=== PATIENT | male | born 1945 | race Caucasian/White ===

== ENCOUNTER → 2017-11-25 | Day surgery (SDC) | payer OTHER, SELFPAY | END | disposition home or self-care (01) | PROVIDERS: PCP Internal Medicine; Visit Provider Ophthalmology | DX: H25.12 Age-related nuclear cataract, left eye (principal); E11.9 Type 2 diabetes mellitus without complications; I10 Essential (primary) hypertension; Z79.4 Long term (current) use of insulin | CPT/HCPCS: J2250; J3010; V2787 ==

== ENCOUNTER → 2018-01-23 07:43 | Outpatient (CLI) | payer OTHER, SELFPAY ==
[2018-01-23 09:03] LABS: Hemoglobin A1C% w Est Avg Glu 7.4 % (4.0-6.0)
[2018-01-23 09:05] LABS: Add Manual Diff / Slide Review NO; Basophils Percent Auto 0.7 % (0-2); Eosinophils Percent Auto 5.1 % (2-4); Hematocrit 39.9 % (41-53); Hemoglobin 13.4 g/dL (13.5-17.5); Lymphocytes Percent Auto 27.6 % (25-40); Mean Corpuscular HGB Conc 33.7 % (30-36); Mean Corpuscular Hemoglobin 29.7 PG (26-34); Mean Corpuscular Volume 88.1 fL (80-100); Monocytes Percent Auto 9.9 % (3-14); Neutrophils Absolute Auto 3600 /uL (3000-5900); Neutrophils Percent Auto 56.7 % (50-75); Platelet Count 170 X10^3/uL (150-400); Red Blood Cell Count 4.53 X10^6/uL (4.5-5.9); Red Cell Distribution Width 13.7 % (11.6-14.8); White Blood Cell Count 6.3 X10^3/uL (4.5-11.0)
[2018-01-23 09:31] LABS: Alanine Aminotransferase 25 IU/L (21-72); Albumin 3.9 g/dL (3.5-5.0); Albumin Globulin Ratio 1.4 (1.0-2.8); Alkaline Phosphatase 69 U/L (38-126); Aspartate Aminotransferase 13 IU/L (17-59); BUN Creatinine Ratio 24.3 (6-22); Bilirubin Total 0.6 mg/dL (0.2-1.3); Blood Urea Nitrogen 34 mg/dL (9-20); Carbon Dioxide 29 mmol/L (22-32); Chloride 103 mmol/L (98-107); Cholesterol 117 mg/dL (140-199); Globulin 2.8 g/dL (1.7-4.1); Glucose 87 mg/dL (80-110); HDL Cholesterol 38 mg/dL (40-60); HEMOLYSIS < 15 (0-50); LDL Cholesterol Calculated 67 mg/dL (<100); Potassium 4.8 mmol/L (3.4-5.1); Sodium 142 mmol/L (137-145); Total Protein 6.7 g/dL (6.3-8.2); Triglycerides 61 mg/dL (35-150)
== END ==
PROVIDERS: PCP Internal Medicine; Visit Provider Internal Medicine
DX: E11.9 Type 2 diabetes mellitus without complications (principal)
CPT/HCPCS: 36415; 80053; 80061; 83036; 85025

== ENCOUNTER → 2018-05-27 08:42 | Outpatient (CLI) | payer OTHER, SELFPAY ==
[2018-05-27 09:14] LABS: Hemoglobin A1C% w Est Avg Glu 7.4 % (4.0-6.0)
[2018-05-27 10:04] LABS: Creatinine Urine Random 77.4 mg/dL
[2018-05-27 10:09] LABS: Microalbumi Creatinin Ratio Ur 165.3 ug/mg CR (<30); Microalbumin Urine Random 12.8 mg/dL (0-1.6)
== END ==
PROVIDERS: PCP Internal Medicine; Visit Provider Internal Medicine
DX: E11.9 Type 2 diabetes mellitus without complications (principal)
CPT/HCPCS: 36415; 82043; 82570; 83036

== ENCOUNTER → 2019-06-23 13:41 | Outpatient (ROUT) | payer OTHER, SELFPAY ==
[2019-06-23 14:04] LABS: Add Manual Diff / Slide Review NO; Basophils Absolute Auto 100 /uL (0-100); Basophils Percent Auto 0.9 % (0-2); Eosinophils Absolute Auto 400 /uL (0-450); Eosinophils Percent Auto 5.7 % (2-4); Hematocrit 40.8 % (41-53); Lymphocytes Absolute Auto 1800 /uL (1100-4500); Lymphocytes Percent Auto 23.6 % (25-40); Mean Corpuscular HGB Conc 34.3 % (30-36); Mean Corpuscular Hemoglobin 30.1 PG (26-34); Mean Corpuscular Volume 87.8 fL (80-100); Monocytes Absolute Auto 600 /uL (0-900); Monocytes Percent Auto 8.1 % (3-14); Neutrophils Absolute Auto 4600 /uL (1500-7000); Neutrophils Percent Auto 61.7 % (50-75); Platelet Count 192 X10^3/uL (150-400); Red Blood Cell Count 4.65 X10^6/uL (4.5-5.9); Red Cell Distribution Width 13.8 % (11.6-14.8); White Blood Cell Count 7.5 X10^3/uL (4.5-11.0)
[2019-06-23 14:20] LABS: Aspartate Aminotransferase 20 IU/L (17-59); BUN Creatinine Ratio 31.5 (6-22); Blood Urea Nitrogen 41 mg/dL (9-20); Calcium 9.4 mg/dL (8.4-10.2); Carbon Dioxide 27 mmol/L (22-32); Chloride 103 mmol/L (98-107); Cholesterol 142 mg/dL (140-199); Estimated Glomerular Filt Rate 54.3 mL/min (>60); Glucose 219 mg/dL (80-110); HDL Cholesterol 31 mg/dL (40-60); HEMOLYSIS 21 (0-50); LDL Cholesterol Calculated 72 mg/dL (<100); Potassium 4.5 mmol/L (3.4-5.1); Sodium 141 mmol/L (137-145); Triglycerides 193 mg/dL (35-150)
== END ==
PROVIDERS: PCP Internal Medicine; Visit Provider Internal Medicine
DX: I10 Essential (primary) hypertension (principal); E78.2 Mixed hyperlipidemia; I48.91 Unspecified atrial fibrillation
CPT/HCPCS: 80048; 80061; 84450; 85025

== ENCOUNTER → 2020-04-19 08:09 | Outpatient (CLI) | payer MEDICARE, SELFPAY ==
[2020-04-19 09:24] LABS: Hematocrit 35.7 % (41-53); Hemoglobin 11.9 g/dL (13.5-17.5); Mean Corpuscular HGB Conc 33.4 % (30-36); Mean Corpuscular Hemoglobin 29.7 PG (26-34); Mean Corpuscular Volume 88.9 fL (80-100); Platelet Count 197 X10^3/uL (150-400); Red Blood Cell Count 4.02 X10^6/uL (4.5-5.9); Red Cell Distribution Width 13.6 % (11.6-14.8); White Blood Cell Count 7.9 X10^3/uL (4.5-11.0)
[2020-04-19 09:46] LABS: Aspartate Aminotransferase 16 IU/L (17-59); BUN Creatinine Ratio 27.2 (6-22); Blood Urea Nitrogen 44 mg/dL (9-20); Calcium 8.9 mg/dL (8.4-10.2); Carbon Dioxide 23 mmol/L (22-32); Chloride 107 mmol/L (98-107); Cholesterol 123 mg/dL (140-199); Glucose 147 mg/dL (80-110); HDL Cholesterol 35 mg/dL (40-60); HEMOLYSIS < 15 (0-50); LDL Cholesterol Calculated 67 mg/dL (<100); Sodium 139 mmol/L (137-145); Triglycerides 103 mg/dL (35-150)
[2020-04-19 10:03] LABS: Potassium 5.5 mmol/L (3.4-5.1)
[2020-04-19 10:17] LABS: TSH w/ Reflex to FT4 2.08 uIU/mL (0.47-4.68)
[2020-04-19 11:05] LABS: Neutrophils Absolute Manual 5056 /uL (3000-5900); Total Cells Counted 100
[2020-04-19 11:06] LABS: Platelet Estimate Adequate on smear; RBC Morphology Normal Morphology
== END ==
PROVIDERS: PCP Internal Medicine; Referring Provider Internal Medicine; Visit Provider Internal Medicine
DX: I10 Essential (primary) hypertension (principal); E78.2 Mixed hyperlipidemia; I48.91 Unspecified atrial fibrillation
CPT/HCPCS: 36415; 80048; 80061; 84443; 84450; 85025

== ENCOUNTER → 2020-05-01 08:02 | Outpatient (CLI) | payer MEDICARE, SELFPAY ==
[2020-05-01 08:55] LABS: Hematocrit 34.5 % (41-53); Hemoglobin 11.8 g/dL (13.5-17.5); Mean Corpuscular HGB Conc 34.2 % (30-36); Mean Corpuscular Hemoglobin 30.3 PG (26-34); Mean Corpuscular Volume 88.5 fL (80-100); Platelet Count 172 X10^3/uL (150-400); Red Blood Cell Count 3.89 X10^6/uL (4.5-5.9); Red Cell Distribution Width 13.6 % (11.6-14.8); White Blood Cell Count 7.1 X10^3/uL (4.5-11.0)
[2020-05-01 09:13] LABS: BUN Creatinine Ratio 27.7 (6-22); Blood Urea Nitrogen 39 mg/dL (9-20); Calcium 9.1 mg/dL (8.4-10.2); Carbon Dioxide 23 mmol/L (22-32); Chloride 110 mmol/L (98-107); Estimated Glomerular Filt Rate 49.3 mL/min (>60); Glucose 89 mg/dL (80-110); HEMOLYSIS < 15 (0-50); Potassium 4.8 mmol/L (3.4-5.1); Sodium 140 mmol/L (137-145)
[2020-05-01 09:24] LABS: HEMOLYSIS < 15 (0-50); Iron 85 ug/dL (49-181)
[2020-05-01 09:34] LABS: Percent Iron Saturation 23 % (20-50); Total Iron Binding Capacity 371 ug/dL (261-462); Transferrin 284 mg/dL (206-381)
[2020-05-01 09:47] LABS: Ferritin 13 ng/mL (18-464)
[2020-05-01 15:58] LABS: Neutrophils Absolute Manual 3621 /uL (3000-5900); Total Cells Counted 100
[2020-05-01 15:59] LABS: RBC Morphology Normal Morphology
== END ==
PROVIDERS: PCP Internal Medicine; Referring Provider Internal Medicine; Visit Provider Internal Medicine
DX: N17.0 Acute kidney failure with tubular necrosis (principal); D64.9 Anemia, unspecified
CPT/HCPCS: 36415; 80048; 82728; 83540; 83550; 85025

== ENCOUNTER → 2020-05-29 07:44 | Outpatient (CLI) | payer MEDICARE, SELFPAY ==
[2020-05-29 09:06] LABS: Add Manual Diff / Slide Review NO; Basophils Absolute Auto 100 /uL (0-100); Basophils Percent Auto 0.9 % (0-2); Eosinophils Absolute Auto 400 /uL (0-450); Eosinophils Percent Auto 5.4 % (2-4); Hematocrit 35.8 % (41-53); Lymphocytes Absolute Auto 1500 /uL (1100-4500); Lymphocytes Percent Auto 22.4 % (25-40); Mean Corpuscular HGB Conc 33.4 % (30-36); Mean Corpuscular Volume 89.7 fL (80-100); Monocytes Absolute Auto 600 /uL (0-900); Monocytes Percent Auto 9.7 % (3-14); Neutrophils Absolute Auto 4000 /uL (1500-7000); Neutrophils Percent Auto 61.6 % (50-75); Platelet Count 171 X10^3/uL (150-400); Red Blood Cell Count 3.98 X10^6/uL (4.5-5.9); Red Cell Distribution Width 14.1 % (11.6-14.8); White Blood Cell Count 6.6 X10^3/uL (4.5-11.0)
[2020-05-29 09:50] LABS: BUN Creatinine Ratio 25.6 (6-22); Blood Urea Nitrogen 31 mg/dL (9-20); Calcium 8.8 mg/dL (8.4-10.2); Carbon Dioxide 27 mmol/L (22-32); Chloride 108 mmol/L (98-107); Estimated Glomerular Filt Rate 58.8 mL/min (>60); Glucose 137 mg/dL (80-110); HEMOLYSIS < 15 (0-50); Sodium 139 mmol/L (137-145)
== END ==
PROVIDERS: PCP Internal Medicine; Referring Provider Internal Medicine; Visit Provider Internal Medicine
DX: I10 Essential (primary) hypertension (principal)
CPT/HCPCS: 36415; 80048; 85025

== ENCOUNTER → 2020-06-26 20:03 | Outpatient (ROUT) | payer MEDICARE, SELFPAY ==
[2020-06-26 20:21] LABS: Add Manual Diff / Slide Review NO; Basophils Absolute Auto 100 /uL (0-100); Basophils Percent Auto 0.7 % (0-2); Eosinophils Absolute Auto 900 /uL (0-450); Eosinophils Percent Auto 10.3 % (2-4); Hematocrit 38.6 % (41-53); Hemoglobin 12.9 g/dL (13.5-17.5); Lymphocytes Absolute Auto 1800 /uL (1100-4500); Lymphocytes Percent Auto 21.3 % (25-40); Mean Corpuscular HGB Conc 33.5 % (30-36); Mean Corpuscular Volume 89.4 fL (80-100); Monocytes Absolute Auto 700 /uL (0-900); Monocytes Percent Auto 8.3 % (3-14); Neutrophils Absolute Auto 5000 /uL (1500-7000); Neutrophils Percent Auto 59.4 % (50-75); Platelet Count 184 X10^3/uL (150-400); Red Blood Cell Count 4.31 X10^6/uL (4.5-5.9); Red Cell Distribution Width 13.9 % (11.6-14.8); White Blood Cell Count 8.5 X10^3/uL (4.5-11.0)
[2020-06-26 20:27] LABS: HEMOLYSIS < 15 (0-50); Iron 79 ug/dL (49-181)
[2020-06-26 20:29] LABS: BUN Creatinine Ratio 28.1 (6-22); Blood Urea Nitrogen 34 mg/dL (9-20); Calcium 9.1 mg/dL (8.4-10.2); Carbon Dioxide 27 mmol/L (22-32); Chloride 107 mmol/L (98-107); Estimated Glomerular Filt Rate 58.8 mL/min (>60); Glucose 112 mg/dL (80-110); HEMOLYSIS < 15 (0-50); Potassium 4.1 mmol/L (3.4-5.1); Sodium 140 mmol/L (137-145)
[2020-06-26 20:41] LABS: Percent Iron Saturation 20 % (20-50); Total Iron Binding Capacity 394 ug/dL (261-462); Transferrin 293 mg/dL (206-381)
[2020-06-26 21:00] LABS: Ferritin 13 ng/mL (18-464)
== END ==
PROVIDERS: PCP Internal Medicine; Visit Provider Internal Medicine
DX: D50.9 Iron deficiency anemia, unspecified (principal); I10 Essential (primary) hypertension
CPT/HCPCS: 80048; 82728; 83540; 83550; 85025

== ENCOUNTER → 2020-10-05 15:18 | Outpatient (ROUT) | payer OTHER, SELFPAY ==
[2020-10-05 15:50] LABS: Add Manual Diff / Slide Review NO; Basophils Absolute Auto 100 /uL (0-100); Basophils Percent Auto 1.1 % (0-2); Eosinophils Absolute Auto 400 /uL (0-450); Hematocrit 40.2 % (41-53); Hemoglobin 13.4 g/dL (13.5-17.5); Lymphocytes Absolute Auto 1700 /uL (1100-4500); Lymphocytes Percent Auto 24.5 % (25-40); Mean Corpuscular HGB Conc 33.2 % (30-36); Mean Corpuscular Hemoglobin 29.5 PG (26-34); Mean Corpuscular Volume 88.8 fL (80-100); Monocytes Absolute Auto 500 /uL (0-900); Neutrophils Absolute Auto 4400 /uL (1500-7000); Neutrophils Percent Auto 62.4 % (50-75); Platelet Count 182 X10^3/uL (150-400); Red Blood Cell Count 4.53 X10^6/uL (4.5-5.9); Red Cell Distribution Width 14.3 % (11.6-14.8); White Blood Cell Count 7.1 X10^3/uL (4.5-11.0)
[2020-10-05 16:02] LABS: Blood Urea Nitrogen 31 mg/dL (9-20); Calcium 9.1 mg/dL (8.4-10.2); Carbon Dioxide 28 mmol/L (22-32); Chloride 106 mmol/L (98-107); Estimated Glomerular Filt Rate 49.1 mL/min (>60); Glucose 190 mg/dL (80-110); HEMOLYSIS < 15 (0-50); Potassium 4.8 mmol/L (3.4-5.1); Sodium 139 mmol/L (137-145)
[2020-10-05 16:05] LABS: HEMOLYSIS < 15 (0-50); Iron 85 ug/dL (49-181)
[2020-10-05 16:15] LABS: Percent Iron Saturation 23 % (20-50); Total Iron Binding Capacity 365 ug/dL (261-462); Transferrin 260 mg/dL (206-381)
[2020-10-05 16:37] LABS: Ferritin 19 ng/mL (18-464)
== END ==
PROVIDERS: PCP Internal Medicine; Visit Provider Internal Medicine
DX: D50.9 Iron deficiency anemia, unspecified (principal); E11.42 Type 2 diabetes mellitus with diabetic polyneuropathy
CPT/HCPCS: 80048; 82728; 83540; 83550; 85025

== ENCOUNTER → 2021-01-04 15:47 | Outpatient (ROUT) | payer OTHER, SELFPAY ==
[2021-01-04 16:06] LABS: Add Manual Diff / Slide Review NO; Basophils Absolute Auto 100 /uL (0-100); Basophils Percent Auto 0.7 % (0-2); Eosinophils Absolute Auto 500 /uL (0-450); Hematocrit 39.7 % (41-53); Hemoglobin 13.1 g/dL (13.5-17.5); Lymphocytes Absolute Auto 1800 /uL (1100-4500); Lymphocytes Percent Auto 24.5 % (25-40); Mean Corpuscular Hemoglobin 29.2 PG (26-34); Mean Corpuscular Volume 88.6 fL (80-100); Monocytes Absolute Auto 600 /uL (0-900); Monocytes Percent Auto 7.7 % (3-14); Neutrophils Absolute Auto 4500 /uL (1500-7000); Neutrophils Percent Auto 60.1 % (50-75); Platelet Count 188 X10^3/uL (150-400); Red Blood Cell Count 4.49 X10^6/uL (4.5-5.9); Red Cell Distribution Width 14.1 % (11.6-14.8); White Blood Cell Count 7.5 X10^3/uL (4.5-11.0)
[2021-01-04 16:22] LABS: HEMOLYSIS < 15 (0-50); Iron 78 ug/dL (49-181)
[2021-01-04 16:23] LABS: BUN Creatinine Ratio 20.8 (6-22); Blood Urea Nitrogen 27 mg/dL (9-20); Calcium 9.2 mg/dL (8.4-10.2); Carbon Dioxide 23 mmol/L (22-32); Chloride 105 mmol/L (98-107); Cholesterol 136 mg/dL (140-199); Glucose 147 mg/dL (80-110); HDL Cholesterol 43 mg/dL (40-60); HEMOLYSIS < 15 (0-50); LDL Cholesterol Calculated 67 mg/dL (<100); Phosphorous 3.9 mg/dL (2.3-3.7); Potassium 4.6 mmol/L (3.4-5.1); Sodium 138 mmol/L (137-145); Triglycerides 128 mg/dL (35-150)
[2021-01-04 16:24] LABS: Hemoglobin A1C% w Est Avg Glu 7.2 % (4.0-6.0)
[2021-01-04 16:33] LABS: Percent Iron Saturation 22 % (20-50); Total Iron Binding Capacity 354 ug/dL (261-462); Transferrin 267 mg/dL (206-381)
[2021-01-04 16:56] LABS: Ferritin 18 ng/mL (18-464)
[2021-01-05 06:12] LABS: Parathyroid Hormone Int 83 pg/mL (15-65)
== END ==
PROVIDERS: PCP Internal Medicine; Visit Provider Internal Medicine
DX: N18.30 Chronic kidney disease, stage 3 unspecified (principal); D50.9 Iron deficiency anemia, unspecified
CPT/HCPCS: 80048; 80061; 82728; 83036; 83540; 83550; 83970; 84100; 85025

== ENCOUNTER → 2022-04-25 09:27 | Outpatient (CLI) | payer MEDICARE, SELFPAY ==
[2022-04-25 10:09] LABS: Hematocrit 36.4 % (41-53); Hemoglobin 12.5 g/dL (13.5-17.5); Mean Corpuscular HGB Conc 34.4 % (30-36); Mean Corpuscular Hemoglobin 30.7 PG (26-34); Mean Corpuscular Volume 89.3 fL (80-100); Platelet Count 166 X10^3/uL (150-400); Red Blood Cell Count 4.08 X10^6/uL (4.5-5.9); Red Cell Distribution Width 14.4 % (11.6-14.8); White Blood Cell Count 7.1 X10^3/uL (4.5-11.0)
[2022-04-25 10:23] LABS: Hemoglobin A1C% w Est Avg Glu 6.9 % (4.0-6.0)
[2022-04-25 10:46] LABS: HEMOLYSIS < 15 (0-50); Iron 69 ug/dL (49-181)
[2022-04-25 10:55] LABS: Alanine Aminotransferase 15 IU/L (<50); Albumin 4.2 g/dL (3.5-5.0); Albumin Globulin Ratio 1.4 (1.0-2.8); Alkaline Phosphatase 74 U/L (38-126); Aspartate Aminotransferase 21 IU/L (17-59); BUN Creatinine Ratio 21.6 (6-22); Bilirubin Total 0.6 mg/dL (0.2-1.3); Blood Urea Nitrogen 33 mg/dL (9-20); Calcium 8.6 mg/dL (8.4-10.2); Carbon Dioxide 22 mmol/L (22-32); Chloride 107 mmol/L (98-107); Cholesterol 135 mg/dL (140-199); Estimated Glomerular Filt Rate 47 mL/min (>60); Globulin 2.9 g/dL (1.7-4.1); Glucose 117 mg/dL (80-110); HDL Cholesterol 47 mg/dL (40-60); HEMOLYSIS < 15 (0-50); LDL Cholesterol Calculated 78 mg/dL (<100); Potassium 4.4 mmol/L (3.4-5.1); Sodium 141 mmol/L (137-145); Total Protein 7.1 g/dL (6.3-8.2); Triglycerides 51 mg/dL (35-150)
[2022-04-25 10:57] LABS: Percent Iron Saturation 20 % (20-50); Total Iron Binding Capacity 351 ug/dL (261-462); Transferrin 244 mg/dL (206-381)
[2022-04-25 11:14] LABS: TSH w/ Reflex to FT4 1.42 uIU/mL (0.47-4.68)
[2022-04-25 12:26] LABS: Creatinine Urine Random 75.7 mg/dL
[2022-04-25 21:53] LABS: Microalbumi Creatinin Ratio Ur 2364.5 ug/mg CR (<30)
[2022-04-26 09:16] LABS: Calcium 8.7 mg/dL (8.6-10.2); Parathyroid Hormone, Intact 124 pg/mL (15-65)
== END ==
PROVIDERS: PCP Internal Medicine; Referring Provider Internal Medicine; Visit Provider Internal Medicine
DX: E11.42 Type 2 diabetes mellitus with diabetic polyneuropathy (principal); E78.2 Mixed hyperlipidemia; I10 Essential (primary) hypertension; N18.32 Chronic kidney disease, stage 3b; N25.81 Secondary hyperparathyroidism of renal origin
CPT/HCPCS: 36415; 80053; 80061; 82043; 82310; 82570; 83036; 83540; 83550; 83970; 84443; 85027

== ENCOUNTER → 2022-07-31 11:24 | Outpatient (CLI) | payer MEDICARE, SELFPAY ==
[2022-07-31 12:25] LABS: Hematocrit 38.5 % (41-53); Hemoglobin 13.3 g/dL (13.5-17.5); Mean Corpuscular HGB Conc 34.6 % (30-36); Mean Corpuscular Volume 89.8 fL (80-100); Platelet Count 235 X10^3/uL (150-400); Red Blood Cell Count 4.28 X10^6/uL (4.5-5.9); Red Cell Distribution Width 14.4 % (11.6-14.8); White Blood Cell Count 7.4 X10^3/uL (4.5-11.0)
[2022-07-31 12:43] LABS: Hemoglobin A1C% w Est Avg Glu 7.9 % (4.0-6.0)
[2022-07-31 13:08] LABS: BUN Creatinine Ratio 25.5 (6-22); Blood Urea Nitrogen 42 mg/dL (9-20); Calcium 9.4 mg/dL (8.4-10.2); Carbon Dioxide 25 mmol/L (22-32); Chloride 103 mmol/L (98-107); Estimated Glomerular Filt Rate 43 mL/min (>60); Glucose 141 mg/dL (80-110); HEMOLYSIS < 15 (0-50); Potassium 4.7 mmol/L (3.4-5.1); Sodium 140 mmol/L (137-145)
[2022-08-01 10:22] LABS: Calcium 9.2 mg/dL (8.6-10.2); Parathyroid Hormone, Intact 52 pg/mL (15-65)
== END ==
PROVIDERS: PCP Internal Medicine; Referring Provider Internal Medicine; Visit Provider Internal Medicine
DX: E11.42 Type 2 diabetes mellitus with diabetic polyneuropathy (principal); N18.32 Chronic kidney disease, stage 3b; N25.81 Secondary hyperparathyroidism of renal origin
CPT/HCPCS: 36415; 80048; 82310; 83036; 83970; 85027

== ENCOUNTER → 2022-10-31 11:01 | Outpatient (CLI) | payer MEDICARE, SELFPAY ==
[2022-10-31 11:48] LABS: Blood Urea Nitrogen 38 mg/dL (9-20); Calcium 8.9 mg/dL (8.4-10.2); Carbon Dioxide 25 mmol/L (22-32); Chloride 102 mmol/L (98-107); Estimated Glomerular Filt Rate 43 mL/min (>60); Glucose 206 mg/dL (80-110); HEMOLYSIS < 15 (0-50); Potassium 4.2 mmol/L (3.4-5.1); Sodium 139 mmol/L (137-145)
[2022-11-01 09:38] LABS: Labcorp Hemoglobin (Hb) A1c 6.8 % (4.8-5.6)
== END ==
PROVIDERS: PCP Internal Medicine; Referring Provider Internal Medicine; Visit Provider Internal Medicine
DX: E11.42 Type 2 diabetes mellitus with diabetic polyneuropathy (principal)
CPT/HCPCS: 36415; 80048; 83036

== ENCOUNTER → 2023-02-20 12:13 | Outpatient (CLI) | payer MEDICARE, SELFPAY ==
[2023-02-20 13:12] LABS: Hematocrit 40.7 % (41-53); Hemoglobin 13.9 g/dL (13.5-17.5); Mean Corpuscular HGB Conc 34.2 % (30-36); Mean Corpuscular Hemoglobin 31.4 PG (26-34); Mean Corpuscular Volume 91.8 fL (80-100); Platelet Count 152 X10^3/uL (150-400); Red Blood Cell Count 4.44 X10^6/uL (4.5-5.9); Red Cell Distribution Width 14.4 % (11.6-14.8); White Blood Cell Count 6.6 X10^3/uL (4.5-11.0)
[2023-02-20 13:50] LABS: BUN Creatinine Ratio 19.6 (6-22); Blood Urea Nitrogen 33 mg/dL (9-20); Calcium 9.2 mg/dL (8.4-10.2); Carbon Dioxide 25 mmol/L (22-32); Chloride 102 mmol/L (98-107); Estimated Glomerular Filt Rate 42 mL/min (>60); Glucose 130 mg/dL (80-110); HEMOLYSIS < 15 (0-50); Potassium 4.7 mmol/L (3.4-5.1); Sodium 136 mmol/L (137-145)
[2023-02-20 14:17] LABS: Ferritin 31 ng/mL (18-464)
[2023-02-20 15:27] LABS: HEMOLYSIS < 15 (0-50); Iron 96 ug/dL (49-181)
[2023-02-20 15:39] LABS: Percent Iron Saturation 27 % (20-50); Total Iron Binding Capacity 354 ug/dL (261-462); Transferrin 251 mg/dL (206-381)
[2023-02-21 09:17] LABS: x Labcorp Estim. Avg Glu (eAG) 157 mg/dL (.); x Labcorp Hemoglobin A1c 7.1 % (4.8-5.6)
== END ==
PROVIDERS: PCP Internal Medicine; Referring Provider Internal Medicine; Visit Provider Internal Medicine
DX: N18.9 Chronic kidney disease, unspecified (principal); E11.42 Type 2 diabetes mellitus with diabetic polyneuropathy; E11.319 Type 2 diabetes mellitus with unspecified diabetic retinopathy without macular edema; N18.32 Chronic kidney disease, stage 3b; D63.1 Anemia in chronic kidney disease
CPT/HCPCS: 36415; 80048; 82728; 83036; 83540; 83550; 85027

== ENCOUNTER → 2023-05-23 07:51 | Outpatient (CLI) | payer MEDICARE, SELFPAY ==
[2023-05-23 08:51] LABS: Hematocrit 42.2 % (41-53); Hemoglobin 14.4 g/dL (13.5-17.5); Mean Corpuscular HGB Conc 34.1 % (30-36); Mean Corpuscular Hemoglobin 31.8 PG (26-34); Mean Corpuscular Volume 93.3 fL (80-100); Platelet Count 153 X10^3/uL (150-400); Red Blood Cell Count 4.52 X10^6/uL (4.5-5.9); Red Cell Distribution Width 14.4 % (11.6-14.8); White Blood Cell Count 6.8 X10^3/uL (4.5-11.0)
[2023-05-23 09:05] LABS: Hemoglobin A1C% w Est Avg Glu 7.1 % (4.0-6.0)
[2023-05-23 09:13] LABS: HEMOLYSIS < 15 (0-50); Iron 78 ug/dL (49-181)
[2023-05-23 09:14] LABS: Alanine Aminotransferase 16 IU/L (<50); Albumin 4.4 g/dL (3.5-5.0); Albumin Globulin Ratio 1.4 (1.0-2.8); Alkaline Phosphatase 79 U/L (38-126); Aspartate Aminotransferase 21 IU/L (17-59); BUN Creatinine Ratio 21.5 (6-22); Bilirubin Total 0.6 mg/dL (0.2-1.3); Blood Urea Nitrogen 35 mg/dL (9-20); Calcium 9.4 mg/dL (8.4-10.2); Carbon Dioxide 26 mmol/L (22-32); Chloride 104 mmol/L (98-107); Estimated Glomerular Filt Rate 43 mL/min (>60); Globulin 3.2 g/dL (1.7-4.1); Glucose 115 mg/dL (80-110); HEMOLYSIS < 15 (0-50); Potassium 4.2 mmol/L (3.4-5.1); Sodium 138 mmol/L (137-145); Total Protein 7.6 g/dL (6.3-8.2)
[2023-05-23 09:25] LABS: Percent Iron Saturation 23 % (20-50); Total Iron Binding Capacity 334 ug/dL (261-462); Transferrin 261 mg/dL (206-381)
[2023-05-23 09:48] LABS: Ferritin 23 ng/mL (18-464)
[2023-05-23 11:05] LABS: Creatinine Urine Random 44.1 mg/dL
[2023-05-23 11:31] LABS: Microalbumi Creatinin Ratio Ur 1083.9 ug/mg CR (<30); Microalbumin Urine Random 47.8 mg/dL (0-1.6)
== END ==
PROVIDERS: PCP Internal Medicine; Referring Provider Internal Medicine; Visit Provider Internal Medicine
DX: E11.42 Type 2 diabetes mellitus with diabetic polyneuropathy (principal); N18.32 Chronic kidney disease, stage 3b; E11.319 Type 2 diabetes mellitus with unspecified diabetic retinopathy without macular edema
CPT/HCPCS: 36415; 80053; 82043; 82570; 82728; 83036; 83540; 83550; 85027

== ENCOUNTER → 2023-11-24 08:54 | Outpatient (CLI) | payer MEDICARE, SELFPAY ==
[2023-11-24 09:53] LABS: Hemoglobin A1C% w Est Avg Glu 7.7 % (4.0-6.0)
[2023-11-24 10:09] LABS: Aspartate Aminotransferase 19 IU/L (17-59); BUN Creatinine Ratio 21.9 (6-22); Blood Urea Nitrogen 37 mg/dL (9-20); Calcium 8.7 mg/dL (8.4-10.2); Carbon Dioxide 25 mmol/L (22-32); Chloride 110 mmol/L (98-107); Estimated Glomerular Filt Rate 41 mL/min (>60); Glucose 133 mg/dL (80-110); HEMOLYSIS < 15 (0-50); Sodium 140 mmol/L (137-145)
[2023-11-26 20:27] LABS: Calcium 8.4 mg/dL (8.6-10.2); Parathyroid Hormone, Intact 72 pg/mL (15-65)
== END ==
PROVIDERS: PCP Internal Medicine; Referring Provider Internal Medicine; Visit Provider Internal Medicine
DX: N18.32 Chronic kidney disease, stage 3b (principal); E11.42 Type 2 diabetes mellitus with diabetic polyneuropathy; E78.2 Mixed hyperlipidemia; N25.81 Secondary hyperparathyroidism of renal origin
CPT/HCPCS: 36415; 80048; 82310; 83036; 83970; 84450

== ENCOUNTER → 2023-11-27 08:05 | Outpatient (CLI) | payer MEDICARE, SELFPAY ==
[2023-11-27 10:38] LABS: Cholesterol 124 mg/dL (140-199); HDL Cholesterol 45 mg/dL (40-60); LDL Cholesterol Calculated 68 mg/dL (<100); Triglycerides 57 mg/dL (35-150)
== END ==
PROVIDERS: PCP Internal Medicine; Referring Provider Internal Medicine; Visit Provider Internal Medicine
DX: E78.2 Mixed hyperlipidemia (principal)
CPT/HCPCS: 36415; 80061

== ENCOUNTER 2023-11-29 21:34 | Observation (INO) | payer MEDICARE, SELFPAY ==
[2023-11-29] VITALS (14 sets, daily range): BP systolic 144–233; BP diastolic 68–138; PULSE 73–125; RESP 12–23; TEMP 36.3; O2SAT 91–99; BMI 25.8
--- NOTE | 2023-11-29 21:46 | ED_ITS ---
HPI - Neuro Symptoms/Deficit General Chief Complaint: Neuro Symptoms/Deficit Stated Complaint: slurred speech/rt side tingling Time Seen by Provider: 11/29/23 21:45 History of Present Illness HPI Narrative: Patient is a 78-year-old male history of chronic persistent atrial fibrillation, diabetes hypertension hyperlipidemia peripheral neuropathy chronic kidney disease presenting today with slurring of speech. He reports that he was doing well until around 2:00-3:00 p.m.. Since that time he has had at least 6-7 episodes where he has had some slurring of speech. His whom he has been to for 40 years states that she could not understand him. Episodes lasted about 10-15 minutes. Currently has no symptoms. He denies any chest pain palpitations dizziness or lightheadedness Related Data Home Medications Medication Instructions Recorded Confirmed [id number] (GLUCOSAMINE & 1 tab PO QDAY ##1 08/09/11 11/27/23 CHONDROITIN PLUS) coenzyme Q10 100 mg capsule 100 mg PO DAILY 10/08/18 11/27/23 folic nnkm-wkcpdimiqgrc-zl tab PO 10/08/18 11/27/23 antioxidant cmb5 1 mg-150 mg-850 mg tablet alpha lipoic acid 120 mg PO 6XW 04/25/22 11/27/23 ascorbate calcium (vitamin C) 500 500 mg PO 3XW 04/25/22 11/27/23 mg capsule cholecalciferol (vitamin D3) 50 50 mcg PO DAILY 04/25/22 11/27/23 mcg (2,000 unit) capsule cyanocobalamin (vitamin B-12) 2,500 mcg sublingual DAILY 04/25/22 11/27/23 2,500 mcg sublingual tablet (Vitamin B-12) green tea extract 500 mg capsule 500 mg PO 3XW 04/25/22 11/27/23 lysine 500 mg tablet (L-Lysine) 500 mg PO 3XW 04/25/22 11/27/23 methylsulfonylmethane 500 mg 750 mg PO DAILY #0 caps 04/25/22 11/27/23 capsule turmeric root extract 500 mg 1,000 mg PO 3XW 04/25/22 11/27/23 capsule D-Ribose 1 cap PO DAILY 10/31/22 11/27/23 glimepiride 1 mg tablet 1 mg PO DAILY 10/31/22 11/27/23 insulin glargine 100 unit/mL (3 12 unit SUBCUT QPM 11/27/23 11/30/23 mL) subcutaneous pen (Lantus Solostar U-100 Insulin) Previous Rx's Medication Instructions Recorded amlodipine 2.5 mg tablet 2.5 mg PO DAILY #90 tabs 05/20/23 metformin 500 mg tablet 1,000 mg (2 x 500 mg) PO BID #360 05/20/23 tabs simvastatin 10 mg tablet 10 mg PO HS #90 tabs 05/20/23 metoprolol tartrate 25 mg tablet 25 mg PO BID #180 tabs 08/12/23 apixaban 5 mg tablet (Eliquis) 5 mg PO BID #180 tabs 11/17/23 empagliflozin 25 mg tablet 25 mg PO DAILY #90 tabs 11/17/23 (Jardiance) Allergies Allergy/AdvReac Type Severity Reaction Status Date / Time diclofenac [From Voltaren] Allergy Intermediate rash (gel) Verified 11/27/23 13:10 lisinopril AdvReac Intermediate hyperkalemi Verified 11/27/23 13:10 a losartan AdvReac Intermediate hyperkalemi Verified 11/27/23 13:10 a Patient History Medical History Anemia in chronic kidney disease Diabetic retinopathy Tinea corporis Primary osteoarthritis involving multiple joints Overweight Erectile dysfunction History of iron deficiency anemia Secondary hyperparathyroidism (of renal origin) Polyneuropathy, unspecified Stage 3b chronic kidney disease (CKD) Mixed hyperlipidemia Essential hypertension Type 2 diabetes mellitus with polyneuropathy Chronic anticoagulation Chronic atrial fibrillation Gastroesophageal reflux disease History of colon polyps Surgical History History of carpal tunnel release History of cataract surgery Hx of colonoscopy (~2015) H/O hand surgery (~2010) H/O carpal tunnel repair (~2003) History of ankle surgery (~2003) Family History Father Heart disease Brother Hypertension Mother Diabetes mellitus Stroke Social History marital status: household members: spouse occupational status: previously employed Smoking Status: Former smoker alcohol intake: never substance use type: does not use Smoking Status: Former smoker Exam Initial Vital Signs Initial Vital Signs: Vital Signs Temperature 97.3 F L 11/29/23 21:51 Pulse Rate 101 H 11/29/23 21:51 Respiratory Rate 16 11/29/23 21:51 Blood Pressure 233/127 H 11/29/23 21:51 Pulse Oximetry 97 11/29/23 21:51 Oxygen Delivery Method Room Air 11/29/23 21:51 GENERAL: Alert pleasant well-appearing 78-year-old male and in no acute distress. HEENT: Head atraumatic,EOMI, pupils reactive, face symmetric, moist mucous membranes CARDIOVASCULAR: Regular rate and rhythm without murmurs, rubs or gallops. RESPIRATORY: Breath sounds equal bilaterally, no wheezes rales or rhonchi. ABDOMEN: Soft, nontender. Normoactive bowel sounds all 4 quadrants. No guarding or rebound. EXTREMITIES: Normal range of motion, no clubbing or edema. Neurovascularly intact NEUROLOGICAL: Alert and oriented x4.Normal gait and speech. Cranial nerves II through XII grossly intact. Good oelzjb-qk-feai, good nlyc-rs-ozzn, strength equal bilaterally, no dysarthria or aphasia, sensation in tact to soft touch bilaterally, no visual changes, no facial droop SKIN: Warm, dry, no laceration, no petechiae, no rashes or lesions. Scores NIH Stroke Scale Level of Conciousness: Alert, keenly responsive Ask month/age: Answers both questions correctly. Open/close eyes, close hand: Performs both tasks correctly Best gaze horizontal: Normal Visual florez: No visual loss Facial palsy: Normal symetrical movement Left arm drift: No drift for full 10 sec Right arm drift: No drift for full 10 sec Left leg drift: No drift for full 5 sec Right leg drift: No drift for full 5 sec Limb ataxia: Absent Sensory on face/arms/legs: Normal, no sensory loss Best language: No aphasia, normal Dysarthria: Normal Extinction or inattention: No abnormality Total NIH Stroke scale score: 0 Course Orders Ordered: ED Orders 11/29/23 21:[address] angio head and neck Stat EKG-12 Lead Stat 11/29/23 21:58 Urine Drug Screen, Rapid Stat Urine Microscopic Stat 11/29/23 22:00 Complete Blood Count AUTO DIFF Stat Comprehensive Metabolic Panel Stat Ethanol (ETOH) Stat PTT Partial Thromboplastin Doimngo Stat Prothrombin Time INR Stat Troponin & CK Cardiac Panel Stat 11/29/23 22:50 COVID19 -Nasal RAPID Stat Acetaminophen (Acetaminophen 325 Mg Tablet) 650 mg PO Q6H PRN PRN Reason: Fever/Mild Pain (1-3) Apixaban (Apixaban 5 Mg Tablet) 5 mg PO BID KYLE Atorvastatin Calcium (Atorvastatin 20 Mg Tablet) 10 mg PO BEDTIME KYLE Dextrose (D10w) 100 mls @ 1,200 mls/hr IV PRN PRN PRN Reason: Hypoglycemia Insulin Glargine (Insulin Glargine 100 Unit/Ml 3ml Pen) 12 unit SUBCUT QPM KYLE Insulin Human Lispro (Insulin Lispro 100 Unit/Ml 3ml Vial) 0 unit SUBCUT ACHS KYLE; Protocol Metoprolol Tartrate (Metoprolol Ir 25 Mg Tablet) 25 mg PO BID [facility] Naloxone HCl (Naloxone 0.4 Mg/Ml Vial) 0.2 mg IV Q2MIN PRN PRN Reason: Opiate Reversal (Empagliflozin [ Jardiance] 25 Mg Tablet) 25 mg PO DAILY [facility] Ondansetron HCl (Ondansetron 4 Mg Odt) 4 mg PO Q8HR PRN PRN Reason: Nausea And Vomiting Sodium Chloride (Sodium Chloride 0.9% Flush) 10 ml IV BID [facility] Sodium Chloride (Sodium Chloride 0.9% Flush) 10 ml IV PRN PRN PRN Reason: Flush Discontinued Medications Labetalol HCl (Labetalol 20 Mg/4 Ml Syringe) 10 mg IV NOW ONE Stop: 11/29/23 23:40 Last Admin: 11/29/23 23:48 Dose: 10 mg Documented By: JENNIFER Vital Signs Vital signs: Vital Signs - 8 hr 11/29/23 21:51 11/29/23 21:54 11/29/23 21:55 Temperature 97.3 F L Pulse Rate 101 H 101 H Respiratory Rate 16 21 Blood Pressure 233/127 H 188/84 H Pulse Oximetry 97 97 Oxygen Delivery Method Room Air 11/29/23 21:55 11/29/23 22:10 11/29/23 22:29 Temperature Pulse Rate 93 H 92 H Respiratory Rate 18 Blood Pressure 210/138 H Pulse Oximetry 97 98 Oxygen Delivery Method 11/29/23 22:29 11/29/23 22:30 11/29/23 22:30 Temperature Pulse Rate 125 H 90 Respiratory Rate 20 18 Blood Pressure 192/87 H Pulse Oximetry 99 99 Oxygen Delivery Method 11/29/23 22:49 11/29/23 22:49 11/29/23 23:00 Temperature Pulse Rate 89 80 Respiratory Rate 17 13 Blood Pressure 195/98 H Pulse Oximetry 96 94 Oxygen Delivery Method 11/29/23 23:00 11/29/23 23:15 11/29/23 23:15 Temperature Pulse Rate 84 Respiratory Rate 12 Blood Pressure 176/74 H 185/84 H Pulse Oximetry 94 Oxygen Delivery Method 11/29/23 23:30 11/29/23 23:30 Temperature Pulse Rate 81 Respiratory Rate 13 Blood Pressure 207/79 H Pulse Oximetry 91 Oxygen Delivery Method MDM - Neuro Symptoms/Deficit Lab Data 11/29/23 22:00 11/29/23 22:00 Labs: Lab Results 11/29/23 11/29/23 11/29/23 Range/Units 21:58 22:00 22:50 WBC 7.6 (4.5-11.0) X10^3/uL RBC 4.59 (4.5-5.9) X10^6/uL Hgb 14.3 (13.5-17.5) g/dL Hct 42.7 (41-53) % MCV 93.1 (80-100) fL MCH 31.2 (26-34) PG MCHC 33.5 (30-36) % RDW 14.4 (11.6-14.8) % Plt Count 202 (150-400) X10^3/uL Neut % (Auto) 68.1 (50-75) % Lymph % (Auto) 19.3 L (25-40) % [place] % (Auto) 7.8 (3-14) % Eos % (Auto) 4.0 (2-4) % Baso % (Auto) 0.8 (0-2) % Neut # (Auto) 5100 (6587-1839) /uL Lymph # (Auto) 1500 (9108-6492) /uL [place] # (Auto) 600 (0-900) /uL Eos # (Auto) 300 (0-450) /uL Baso # (Auto) 100 (0-100) /uL PT 12.4 (9.4-12.5) SECONDS INR 1.1 (0.9-1.3) APTT 45 H (25.1-36.5) SECONDS Sodium 137 (137-145) mmol/L Potassium 4.0 (3.4-5.1) mmol/L Chloride 105 (98-107) mmol/L Carbon Dioxide 24 (22-32) mmol/L BUN 30 H (9-20) mg/dL Creatinine 1.41 H (0.66-1.25) mg/dL Estimated GFR 51 L (>60) mL/min BUN/Creatinine Ratio 21.3 (6-22) Glucose 130 H (80-110) mg/dL Calcium 9.2 (8.4-10.2) mg/dL Total Bilirubin 0.9 (0.2-1.3) mg/dL AST 24 (17-59) IU/L ALT 20 (<50) IU/L Alkaline Phosphatase 100 (38-126) U/L Total Creatine Kinase 89 (55-170) U/L Troponin I < 0.012 (0.01-0.034) ng/mL Total Protein 8.0 (6.3-8.2) g/dL Albumin 4.9 (3.5-5.0) g/dL Globulin 3.1 (1.7-4.1) g/dL Albumin/Globulin Ratio 1.6 (1.0-2.8) Urine RBC 0-1/hpf (0-5/HPF) Urine WBC None seen (0-5/HPF) Ur Squamous Epith Cells 0-1 /hpf (0-5/HPF) Urine Bacteria None seen (None) Ur Culture Indicated? Cult not indicated Vol Urine Centrifuged 10ml (spun) U Opiates 300ng/mL cut Negative (Negative) Ur Oxycodone Screen Negative (Negative) Urine Methadone Screen Negative (Negative) Ur Barbiturates Screen Negative (Negative) U Tricyclic Antidepress Negative (Negative) Ur Phencyclidine Scrn Negative (Negative) Ur Amphetamines Screen Negative (Negative) U Methamphetamines Scrn Negative (Negative) Ur MDMA Scrn (Ecstasy) Negative (Negative) U Benzodiazepines Scrn Negative (Negative) Urine Cocaine Screen Negative (Negative) U Marijuana (THC) Screen Negative (Negative) Urine pH Normal (Normal) Urine Specific [place] Normal (Normal) Ethyl Alcohol < 10 ( - 10) mg/dL Ur Creatinine Normal (Normal) SARS-CoV-2 (PCR) Negative (Negative) Point of Care Testing Glucose POC 130 Urine Dip Bedside Urine Glucose 1000 mg/dl Bedside Urine Bilirubin - Negative Bedside Urine Ketone - Negative Urine Specific [place] 1.015 Bedside Urine Occult Blood +/- Bedside Urine pH 6 Bedside Urine Protein +/- 15 Bedside Urine Urobilinogen - Negative Bedside Urine Nitrite - Negative Bedside Urine Leukocytes - Negative Esterase Imaging Data CT scan - head: Radiologist's Impression: PROCEDURE: CT STROKE INDICATIONS: sluring of speech TECHNIQUE: Noncontrast 4.5 mm thick angled axial sections acquired from the foramen magnum to the vertex, with coronal reformats. For radiation dose reduction, the following was used: automated exposure control, adjustment of mA and/or kV according to patient size. COMPARISON: None. FINDINGS: Image quality: Diagnostic. CSF spaces: Basal cisterns are patent. No extra-axial fluid collections. The ventricles are symmetric in size and shape. Brain: No intracranial bleeds or masses. There is cerebral volume loss for age, with resultant ventricular and sulcal prominence. There are periventricular and deep white matter chronic small vessel ischemic changes. There is intracranial internal carotid artery atherosclerosis. Skull and face: Calvarium and visualized facial bones appear intact, without suspicious lesions. Sinuses: Visualized sinuses and mastoids are clear. IMPRESSION: No acute intracranial pathology. Findings called to the emergency room physician at time of this dictation. This study fulfills neurological imaging criteria for inclusion or exclusion of acute stroke therapies based on available published neurological guidelines. Dictated by: Vaibhav Calixto M.D. on 11/29/2023 at 22:35 Approved by: Vaibhav Calixto M.D. on 11/29/2023 at 22:36 CTA - brain/neck: Radiologist's Impression: PROCEDURE: CT ANGIO HEAD AND NECK INDICATIONS: sluring of speech TECHNIQUE: After the administration of intravenous contrast, 1 mm thick sections acquired from the aortic arch through the [place]. 3-dimensional khpkmyy-fnpywtfdc-jibytrtdiv (MIP) and/or volume rendering reformats were acquired of the central intracranial vasculature and neck separately. For radiation dose reduction, the following was used: automated exposure control, adjustment of mA and/or kV according to patient size. COMPARISON: None. FINDINGS: Image quality: Diagnostic. BRAIN: CSF spaces: Ventricles are normal in size and shape. Basal cisterns are patent. No extra-axial fluid collections. Brain: No significant abnormality of the brain can be seen. Skull and face: Calvarium and facial bones appear intact, without suspicious lesions. Orbits appear normal. Sinuses: Sinuses and mastoids are clear. HEAD CT ANGIOGRAPHY: Anterior circulation: Intracranial internal carotid arteries are normal in size and flow. The flow within the paired anterior cerebral arteries is normal and symmetric. The flow within the middle cerebral arteries is normal and symmetric. The anterior communicating artery is seen. No aneurysms are seen. Posterior circulation: Visualized portions of the vertebral arteries demonstrate normal caliber, and join to form a normal appearing basilar artery. Flow within the posterior cerebral arteries is normal and symmetric. No aneurysms are seen. NECK CT ANGIOGRAPHY: Carotid system: The great vessels demonstrate a conventional anatomy as they arise from the aortic arch. The origins of the common carotid arteries appear patent. The common carotid arteries demonstrate normal caliber and courses. The bifurcation regions are both widely patent. The internal carotid arteries demonstrate normal calibers and courses. Posterior circulation: The origins of the vertebral arteries both appear widely patent. The more superior extracranial portions of both vertebral arteries also demonstrate normal courses and calibers. They join to form a normal appearing basilar artery. Soft tissues: Visualized neck soft tissues demonstrate no suspicious abnormalities. Bones: No suspicious bony lesions. Visualized cervical spine appears normally aligned. IMPRESSION: No significant intracranial arterial abnormality is seen. No significant abnormality is seen within the arteries of the neck. Findings called to the emergency room physician at time of this dictation. Any quantitative measurements of stenosis were performed using NASCET criteria. Dictated by: Vaibhav Calixto M.D. on 11/29/2023 at 22:36 ECG Data Interpretation: Atrial fibrillation rate [address] changes MDM Narrative Medical decision making narrative: [facility] CC: Slurring of speech Complicating co-morbidities: Atrial fibrillation on Eliquis, hypertension, diabetes Corroborating data: [ ] Data collected from: [ ] Medical records reviewed: Yes Differential considered: TIA, CVA, intracranial hemorrhage Exam documented above, pertinent findings include: NIH stroke scale 0 no focal deficits at this time Lab Test results independently reviewed as above. Pertinent findings: Creatinine 1.41 previous 1.69. No other clinical significant abnormalities Independently reviewed EKG as above atrial fibrillation no ischemic changes Imaging studies independently reviewed: Head CT and CT angio no intracranial abnormalities no large vessel occlusion Consultations: Dr. Tabares accepts patient. Treatments: Labetalol Re-evaluations: [ ] Discussion: Patient 78-year-old male who presents today with multiple episodes of slurring of speech and gait instability. Episodes last for 10-15 minutes and then improved. He had some mild slurring of beach here in the ED before he went to the CT but it improved. He is taking Eliquis. He is not a candidate for thrombolytic therapy. Symptoms have been ongoing for more than 4 hours and they do not seem to last. Certainly has significant risk for CVA with atrial fibrillation and multiple episodes throughout the afternoon Patient is noted to be hypertensive he was given 1 dose of labetalol. Patient is not a candidate for tPA or TNK due to prolonged symptoms and already taking Eliquis.. Stroke Core Measures Exclusion Criteria TPA in CVA: Symptom Onset >3 or 4.5 Hours Discharge Plan Departure Patient Disposition: Admitted as Observation Clinical Impression: CVA (cerebral vascular accident) Admit Date/Time: 11/29/23 23:41 Admit Provider: Ivan Tejada
--- NOTE | 2023-11-29 21:50 | DI.CT.S_ITS ---
PROCEDURE: CT ANGIO HEAD AND NECK INDICATIONS: sluring of speech TECHNIQUE: After the administration of intravenous contrast, 1 mm thick sections acquired from the aortic arch through the [place]. 3-dimensional zpqtxrq-xudfuwuxg-agfcuwsvdf (MIP) and/or volume rendering reformats were acquired of the central intracranial vasculature and neck separately. For radiation dose reduction, the following was used: automated exposure control, adjustment of mA and/or kV according to patient size. COMPARISON: None. FINDINGS: Image quality: Diagnostic. BRAIN: CSF spaces: Ventricles are normal in size and shape. Basal cisterns are patent. No extra-axial fluid collections. Brain: No significant abnormality of the brain can be seen. Skull and face: Calvarium and facial bones appear intact, without suspicious lesions. Orbits appear normal. Sinuses: Sinuses and mastoids are clear. HEAD CT ANGIOGRAPHY: Anterior circulation: Intracranial internal carotid arteries are normal in size and flow. The flow within the paired anterior cerebral arteries is normal and symmetric. The flow within the middle cerebral arteries is normal and symmetric. The anterior communicating artery is seen. No aneurysms are seen. Posterior circulation: Visualized portions of the vertebral arteries demonstrate normal caliber, and join to form a normal appearing basilar artery. Flow within the posterior cerebral arteries is normal and symmetric. No aneurysms are seen. NECK CT ANGIOGRAPHY: Carotid system: The great vessels demonstrate a conventional anatomy as they arise from the aortic arch. The origins of the common carotid arteries appear patent. The common carotid arteries demonstrate normal caliber and courses. The bifurcation regions are both widely patent. The internal carotid arteries demonstrate normal calibers and courses. Posterior circulation: The origins of the vertebral arteries both appear widely patent. The more superior extracranial portions of both vertebral arteries also demonstrate normal courses and calibers. They join to form a normal appearing basilar artery. Soft tissues: Visualized neck soft tissues demonstrate no suspicious abnormalities. Bones: No suspicious bony lesions. Visualized cervical spine appears normally aligned. IMPRESSION: No significant intracranial arterial abnormality is seen. No significant abnormality is seen within the arteries of the neck. Findings called to the emergency room physician at time of this dictation. Any quantitative measurements of stenosis were performed using NASCET criteria. Dictated by: Vaibhav Calixto M.D. on 11/29/2023 at 22:36 Approved by: Vaibhav Calixto M.D. on 11/29/2023 at 22:38
--- NOTE | 2023-11-29 21:50 | DI.CT.S_ITS ---
PROCEDURE: CT STROKE INDICATIONS: sluring of speech TECHNIQUE: Noncontrast 4.5 mm thick angled axial sections acquired from the foramen magnum to the vertex, with coronal reformats. For radiation dose reduction, the following was used: automated exposure control, adjustment of mA and/or kV according to patient size. COMPARISON: None. FINDINGS: Image quality: Diagnostic. CSF spaces: Basal cisterns are patent. No extra-axial fluid collections. The ventricles are symmetric in size and shape. Brain: No intracranial bleeds or masses. There is cerebral volume loss for age, with resultant ventricular and sulcal prominence. There are periventricular and deep white matter chronic small vessel ischemic changes. There is intracranial internal carotid artery atherosclerosis. Skull and face: Calvarium and visualized facial bones appear intact, without suspicious lesions. Sinuses: Visualized sinuses and mastoids are clear. IMPRESSION: No acute intracranial pathology. Findings called to the emergency room physician at time of this dictation. This study fulfills neurological imaging criteria for inclusion or exclusion of acute stroke therapies based on available published neurological guidelines. Dictated by: Vaibhav Calixto M.D. on 11/29/2023 at 22:35 Approved by: Vaibhav Calixto M.D. on 11/29/2023 at 22:36
[2023-11-29 22:04] LABS: Add Manual Diff / Slide Review NO; Basophils Absolute Auto 100 /uL (0-100); Basophils Percent Auto 0.8 % (0-2); Eosinophils Absolute Auto 300 /uL (0-450); Hematocrit 42.7 % (41-53); Hemoglobin 14.3 g/dL (13.5-17.5); Lymphocytes Absolute Auto 1500 /uL (1100-4500); Lymphocytes Percent Auto 19.3 % (25-40); Mean Corpuscular HGB Conc 33.5 % (30-36); Mean Corpuscular Hemoglobin 31.2 PG (26-34); Mean Corpuscular Volume 93.1 fL (80-100); Monocytes Absolute Auto 600 /uL (0-900); Monocytes Percent Auto 7.8 % (3-14); Neutrophils Absolute Auto 5100 /uL (1500-7000); Neutrophils Percent Auto 68.1 % (50-75); Platelet Count 202 X10^3/uL (150-400); Red Blood Cell Count 4.59 X10^6/uL (4.5-5.9); Red Cell Distribution Width 14.4 % (11.6-14.8); White Blood Cell Count 7.6 X10^3/uL (4.5-11.0)
[2023-11-29 22:11] LABS: Ur Creatinine Normal (Normal); Ur Specific Gravity Normal (Normal); Urine Amphetamines Negative (Negative); Urine Barbiturates Negative (Negative); Urine Benzodiazepines Negative (Negative); Urine Cocaine Negative (Negative); Urine MDMA Negative (Negative); Urine Methadone Negative (Negative); Urine Methamphetamines Negative (Negative); Urine Opiates Negative (Negative); Urine Oxycodone Negative (Negative); Urine Phencyclidine Negative (Negative); Urine THC Negative (Negative); Urine Tricyclic Antidepressant Negative (Negative); Urine pH Normal (Normal)
[2023-11-29 22:13] LABS: INR 1.1 (0.9-1.3); Prothrombin Time 12.4 SECONDS (9.4-12.5)
[2023-11-29 22:15] LABS: Bacteria Urine None Seen; Culture Indicated Urine Cult Not Indicated; RBC Urine 0-1/HPF (0-5/HPF); Squamous Epithelial Cell Urine 0-1 /HPF (0-5/HPF); Urine Volume 10mL (spun); WBC Urine None Seen (0-5/HPF)
[2023-11-29 22:16] LABS: PTT Partial Thromboplastin Tim 45 SECONDS (25.1-36.5)
[2023-11-29 22:21] LABS: Alanine Aminotransferase 20 IU/L (<50); Albumin 4.9 g/dL (3.5-5.0); Albumin Globulin Ratio 1.6 (1.0-2.8); Alkaline Phosphatase 100 U/L (38-126); Aspartate Aminotransferase 24 IU/L (17-59); BUN Creatinine Ratio 21.3 (6-22); Bilirubin Total 0.9 mg/dL (0.2-1.3); Blood Urea Nitrogen 30 mg/dL (9-20); Calcium 9.2 mg/dL (8.4-10.2); Carbon Dioxide 24 mmol/L (22-32); Chloride 105 mmol/L (98-107); Creatine Kinase 89 U/L (55-170); Estimated Glomerular Filt Rate 51 mL/min (>60); Globulin 3.1 g/dL (1.7-4.1); Glucose 130 mg/dL (80-110); HEMOLYSIS < 15 (0-50); Sodium 137 mmol/L (137-145)
[2023-11-29 22:32] LABS: Troponin I < 0.012 ng/mL (0.01-0.034)
[2023-11-29 22:42] LABS: Ethanol (ETOH) < 10 mg/dL
[2023-11-29 23:16] LABS: COVID19 -Nasal RAPID Negative (Negative)
[2023-11-29] MEDS: LABETALOL 20 MG/4 ML SYRINGE 10 MG IV (23:48)
[2023-11-30] VITALS (10 sets, daily range): BP systolic 140–178; BP diastolic 66–83; PULSE 69–115; RESP 15–20; TEMP 35.9–36.3; O2SAT 93–99; BMI 25.8
--- NOTE | 2023-11-30 00:52 | PC.NURSE ---
Pt took his own night time medications prior to going upstairs for admission. Simvatatin, Apixiban, Metoprolo, Lantus. Verified dosing with pt also at this time.
[2023-11-30 05:29] LABS: Add Manual Diff / Slide Review NO; Basophils Absolute Auto 100 /uL (0-100); Eosinophils Absolute Auto 200 /uL (0-450); Eosinophils Percent Auto 3.9 % (2-4); Hematocrit 36.8 % (41-53); Hemoglobin 12.5 g/dL (13.5-17.5); Lymphocytes Absolute Auto 1200 /uL (1100-4500); Mean Corpuscular HGB Conc 33.9 % (30-36); Mean Corpuscular Hemoglobin 31.3 PG (26-34); Mean Corpuscular Volume 92.5 fL (80-100); Monocytes Absolute Auto 500 /uL (0-900); Monocytes Percent Auto 8.4 % (3-14); Neutrophils Absolute Auto 4200 /uL (1500-7000); Neutrophils Percent Auto 66.7 % (50-75); Platelet Count 162 X10^3/uL (150-400); Red Blood Cell Count 3.98 X10^6/uL (4.5-5.9); Red Cell Distribution Width 14.5 % (11.6-14.8); White Blood Cell Count 6.2 X10^3/uL (4.5-11.0)
[2023-11-30 05:42] LABS: BUN Creatinine Ratio 20.5 (6-22); Blood Urea Nitrogen 31 mg/dL (9-20); Calcium 8.6 mg/dL (8.4-10.2); Carbon Dioxide 22 mmol/L (22-32); Chloride 110 mmol/L (98-107); Cholesterol 121 mg/dL (140-199); Estimated Glomerular Filt Rate 47 mL/min (>60); Glucose 127 mg/dL (80-110); HDL Cholesterol 39 mg/dL (40-60); HEMOLYSIS < 15 (0-50); LDL Cholesterol Calculated 64 mg/dL (<100); Potassium 3.6 mmol/L (3.4-5.1); Sodium 138 mmol/L (137-145); Triglycerides 89 mg/dL (35-150)
--- NOTE | 2023-11-30 06:27 | PM.HP.1 ---
History of Present Illness History of Present Illness Date Patient Seen: 11/30/23 Time Patient Seen: 00:30 Chief complaint: slurred speech/rt side tingling Narrative: 78 y/o with PMH of HTN, HLD, T2IDDM, peripheral neuropathy affecting legs, presented to ED after he sustained multiple, 10-20 minutes-long episodes of slurring. He describes blurring of vision as well. He has chronic b/l feet neuropathy and new right hand numbness. Does not feel weaker on the right. No headache. In the ED hypertensive. Workup negative for LVO on CTA and negative for CVA on CTH. FORMERLY [facility], [facility] Medical History Anemia in chronic kidney disease Diabetic retinopathy Tinea corporis Primary osteoarthritis involving multiple joints Overweight Erectile dysfunction History of iron deficiency anemia Secondary hyperparathyroidism (of renal origin) Polyneuropathy, unspecified Stage 3b chronic kidney disease (CKD) Mixed hyperlipidemia Essential hypertension Type 2 diabetes mellitus with polyneuropathy Chronic anticoagulation Chronic atrial fibrillation Gastroesophageal reflux disease History of colon polyps Surgical History History of carpal tunnel release History of cataract surgery Hx of colonoscopy (~2015) H/O hand surgery (~2010) H/O carpal tunnel repair (~2003) History of ankle surgery (~2003) Family History Father Heart disease Brother Hypertension Mother Diabetes mellitus Stroke Social History marital status: household members: spouse occupational status: previously employed Smoking Status: Former smoker alcohol intake: never substance use type: does not use Meds Home Medications and Allergies Home Medications Medication Instructions Recorded Confirmed Type [id number] (GLUCOSAMINE & 1 tab PO QDAY ##1 08/09/11 11/27/23 History CHONDROITIN PLUS) coenzyme Q10 100 mg capsule 100 mg PO DAILY 10/08/18 11/30/23 History folic [id number] tab PO 10/08/18 11/27/23 History antioxidant cmb5 1 mg-150 mg-850 mg tablet alpha lipoic acid 120 mg PO 6XW 04/25/22 11/30/23 History cholecalciferol (vitamin D3) 50 50 mcg PO DAILY 04/25/22 11/30/23 History mcg (2,000 unit) capsule cyanocobalamin (vitamin B-12) 2,500 mcg sublingual DAILY 04/25/22 11/30/23 History 2,500 mcg sublingual tablet (Vitamin B-12) green tea extract 500 mg capsule 500 mg PO 3XW 04/25/22 11/30/23 History lysine 500 mg tablet (L-Lysine) 500 mg PO 3XW 04/25/22 11/30/23 History methylsulfonylmethane 500 mg 750 mg PO DAILY #0 caps 04/25/22 11/27/23 History capsule turmeric root extract 500 mg 1,000 mg PO 3XW 04/25/22 11/30/23 History capsule D-Ribose 1 cap PO DAILY 10/31/22 11/30/23 History glimepiride 1 mg tablet 1 mg PO DAILY 10/31/22 11/30/23 History amlodipine 2.5 mg tablet 2.5 mg PO DAILY #90 tabs 05/20/23 11/30/23 Rx metformin 500 mg tablet 1,000 mg (2 x 500 mg) PO BID #360 05/20/23 11/30/23 Rx tabs simvastatin 10 mg tablet 10 mg PO HS #90 tabs 05/20/23 11/30/23 Rx metoprolol tartrate 25 mg tablet 25 mg PO BID #180 tabs 08/12/23 11/30/23 Rx apixaban 5 mg tablet (Eliquis) 5 mg PO BID #180 tabs 11/17/23 11/30/23 Rx empagliflozin 25 mg tablet 25 mg PO DAILY #90 tabs 11/17/23 11/30/23 Rx (Jardiance) insulin glargine 100 unit/mL (3 12 unit SUBCUT QPM 11/27/23 11/30/23 History mL) subcutaneous pen (Lantus Solostar U-100 Insulin) Allergies Allergy/AdvReac Type Severity Reaction Status Date / Time diclofenac [From Voltaren] Allergy Intermediate rash (gel) Verified 11/27/23 13:10 lisinopril AdvReac Intermediate hyperkalemi Verified 11/27/23 13:10 a losartan AdvReac Intermediate hyperkalemi Verified 11/27/23 13:10 a Review of Systems Constitutional Comments: w/o fever, chills, sweats Eyes Comments: few episodes of blurred vision today Cardiovascular Comments: w/o palpitations or chest pain Respiratory Comments: w/o shortness of breath Neurologic Comments: slurred speech right hand numbness Exam Vital Signs (past 8 hours): - 11/29/23 22:29 11/29/23 22:29 11/29/23 22:30 Temperature Pulse Rate 125 H 90 Respiratory Rate 20 18 Blood Pressure 210/138 H Pulse Oximetry 99 99 Oxygen Delivery Method 11/29/23 22:30 11/29/23 22:49 11/29/23 22:49 Temperature Pulse Rate 89 Respiratory Rate 17 Blood Pressure 192/87 H 195/98 H Pulse Oximetry 96 Oxygen Delivery Method 11/29/23 23:00 11/29/23 23:00 11/29/23 23:15 Temperature Pulse Rate 80 84 Respiratory Rate 13 12 Blood Pressure 176/74 H Pulse Oximetry 94 94 Oxygen Delivery Method 11/29/23 23:15 11/29/23 23:30 11/29/23 23:30 Temperature Pulse Rate 81 Respiratory Rate 13 Blood Pressure 185/84 H 207/79 H Pulse Oximetry 91 Oxygen Delivery Method 11/29/23 23:46 11/29/23 23:46 11/29/23 23:48 Temperature Pulse Rate 78 75 Respiratory Rate 23 Blood Pressure 181/79 H 181/79 H Pulse Oximetry 94 Oxygen Delivery Method 11/29/23 23:55 11/29/23 23:55 11/29/23 23:58 Temperature Pulse Rate 75 73 Respiratory Rate 14 16 Blood Pressure 144/68 H Pulse Oximetry 93 92 Oxygen Delivery Method 11/30/23 00:00 11/30/23 00:00 11/30/23 00:05 Temperature Pulse Rate 69 73 Respiratory Rate 16 15 Blood Pressure 165/70 H Pulse Oximetry 93 93 Oxygen Delivery Method Room Air 11/30/23 00:05 11/30/23 00:10 11/30/23 00:10 Temperature Pulse Rate 74 Respiratory Rate 15 Blood Pressure 140/68 163/74 H Pulse Oximetry 93 Oxygen Delivery Method 11/30/23 00:29 11/30/23 01:12 11/30/23 01:15 Temperature 96.7 F L Pulse Rate 115 H 73 73 Respiratory Rate 18 18 Blood Pressure 165/66 H 165/66 H Pulse Oximetry 96 99 Oxygen Delivery Method Oxygen Delivery Method Room Air Const Other: NAD, at bedside HENMT Other: normocephalic Eyes Other: reactive, equal pupils, EOMI Neck Other: supple Resp Other: normal respiratory effort Cardio Other: irregularly irregular GI Other: w/o distension Neuro Other: w/o focal weakness Rt hand numb Dysarthria Extrem Other: w/o swelling Psych Other: appropriate mood Objective ECG Impression: A-fib Labs 11/30/23 05:05 11/30/23 05:05 Labs: Laboratory Results - last 24 hr 11/29/23 11/29/23 11/29/23 21:58 22:00 22:50 WBC 7.6 RBC 4.59 Hgb 14.3 Hct 42.7 MCV 93.1 MCH 31.2 MCHC 33.5 RDW 14.4 Plt Count 202 Neut % (Auto) 68.1 Lymph % (Auto) 19.3 L [place] % (Auto) 7.8 Eos % (Auto) 4.0 Baso % (Auto) 0.8 Neut # (Auto) 5100 Lymph # (Auto) 1500 [place] # (Auto) 600 Eos # (Auto) 300 Baso # (Auto) 100 PT 12.4 INR 1.1 APTT 45 H Sodium 137 Potassium 4.0 Chloride 105 Carbon Dioxide 24 BUN 30 H Creatinine 1.41 H Estimated GFR 51 L BUN/Creatinine Ratio 21.3 Glucose 130 H Calcium 9.2 Total Bilirubin 0.9 AST 24 ALT 20 Alkaline Phosphatase 100 Total Creatine Kinase 89 Troponin I < 0.012 Total Protein 8.0 Albumin 4.9 Globulin 3.1 Albumin/Globulin Ratio 1.6 Triglycerides Cholesterol LDL Cholesterol, Calc HDL Cholesterol Urine RBC 0-1/hpf Urine WBC None seen Ur Squamous Epith Cells 0-1 /hpf Urine Bacteria None seen Ur Culture Indicated? Cult not indicated Vol Urine Centrifuged 10ml (spun) U Opiates 300ng/mL cut Negative Ur Oxycodone Screen Negative Urine Methadone Screen Negative Ur Barbiturates Screen Negative U Tricyclic Antidepress Negative Ur Phencyclidine Scrn Negative Ur Amphetamines Screen Negative U Methamphetamines Scrn Negative Ur MDMA Scrn (Ecstasy) Negative U Benzodiazepines Scrn Negative Urine Cocaine Screen Negative U Marijuana (THC) Screen Negative Urine pH Normal Urine Specific [place] Normal Ethyl Alcohol < 10 Ur Creatinine Normal SARS-CoV-2 (PCR) Negative 11/30/23 05:05 WBC 6.2 RBC 3.98 L Hgb 12.5 L Hct 36.8 L MCV 92.5 MCH 31.3 MCHC 33.9 RDW 14.5 Plt Count 162 Neut % (Auto) 66.7 Lymph % (Auto) 20.0 L [place] % (Auto) 8.4 Eos % (Auto) 3.9 Baso % (Auto) 1.0 Neut # (Auto) 4200 Lymph # (Auto) 1200 [place] # (Auto) 500 Eos # (Auto) 200 Baso # (Auto) 100 PT INR APTT Sodium 138 Potassium 3.6 Chloride 110 H Carbon Dioxide 22 BUN 31 H Creatinine 1.51 H Estimated GFR 47 L BUN/Creatinine Ratio 20.5 Glucose 127 H Calcium 8.6 Total Bilirubin AST ALT Alkaline Phosphatase Total Creatine Kinase Troponin I Total Protein Albumin Globulin Albumin/Globulin Ratio Triglycerides 89 Cholesterol 121 L LDL Cholesterol, Calc 64 HDL Cholesterol 39 L Urine RBC Urine WBC Ur Squamous Epith Cells Urine Bacteria Ur Culture Indicated? Vol Urine Centrifuged U Opiates 300ng/mL cut Ur Oxycodone Screen Urine Methadone Screen Ur Barbiturates Screen U Tricyclic Antidepress Ur Phencyclidine Scrn Ur Amphetamines Screen U Methamphetamines Scrn Ur MDMA Scrn (Ecstasy) U Benzodiazepines Scrn Urine Cocaine Screen U Marijuana (THC) Screen Urine pH Urine Specific [place] Ethyl Alcohol Ur Creatinine SARS-CoV-2 (PCR) Assessment & Plan Assessment and plan (1) TIA (transient ischemic attack): Status: Acute (2) Essential hypertension: Status: Acute (3) Stage 3b chronic kidney disease (CKD): Status: Acute (4) Chronic atrial fibrillation: Status: Acute (5) Type 2 diabetes mellitus with polyneuropathy: Status: Acute (6) Mixed hyperlipidemia: Status: Acute Assessment & Plan narrative: 1. TIA vs CVA - MRI pending - still with minor slurring on admission - speech Tx assessment - BP control - echo pending 2. HTN - uncontrolled - metoprolol, prn labetalol 3. A-fib - anticoagulated - metoprolol 4. DM - insulin, Jardiance - A1C 7.7 a week ago
--- NOTE | 2023-11-30 06:49 | DI.ECHO.S_ITS ---
[place] [facility]+ [facility] : : [address] : : [place] : : [id number] : : Phone: [phone] Echocardiogram Report + + :Name: SAGAR MATTHEWS Study Date: 11/30/2023 Height: 70 in : :[facility] : Weight: 180 lb : : Gender: Male BSA: 2.0 m2 : :: 1945 Age: 78 yrs BP: 157/70 mmHg: :Reason For Study: CVA : :Ordering Physician: : :Erasto SOTOformed By: Moncho Wooten : :MD : :Referring: UNSPECIFIED : + + Interpretation Summary The patient was in atrial fibrillation with heart rates between 63-86 bpm during the exam. There is mild concentric left ventricular hypertrophy. The ejection fraction is estimated to be 55-60%. Diastolic function could not be accurately assessed due to atrial fibrillation. The left atrium is severely dilated. The right ventricle is normal in size and function. There is mild aortic regurgitation. Pulmonary artery pressures cannot be estimated because of the lack of a measurable TR jet velocity. Compared to the prior study dated 12/03/2017, the left ventricle appears less dynamic. Procedure: A two-dimensional transthoracic echocardiogram with color flow and Doppler was performed. The study quality was technically adequate. Comparison is made with the echocardiogram of 12/03/2017. The patient was in atrial fibrillation with heart rates between 63-86 bpm during the exam. Left Ventricle: The left ventricle is normal in size. There is mild concentric left ventricular hypertrophy. Proximal septal thickening is noted. The ejection fraction is estimated to be 55-60%. Diastolic function could not be accurately assessed due to atrial fibrillation. Right Ventricle: The right ventricle is normal in size and function. Atria: The left atrium is severely dilated. Right atrial size is normal. The interatrial septum grossly appears intact with no obvious evidence for an atrial septal defect. Mitral Valve: The mitral valve is normal in structure and function. There is no mitral valve stenosis. There is trace mitral regurgitation. Aortic Valve: The aortic valve is trileaflet. There is no aortic valve stenosis. There is mild aortic regurgitation. Tricuspid Valve: The tricuspid valve is normal in structure and function. There is no tricuspid stenosis. There is trace tricuspid regurgitation. Pulmonary artery pressures cannot be estimated because of the lack of a measurable TR jet velocity. Pulmonic Valve: The pulmonic valve is not well visualized. There is no pulmonic valvular stenosis. There is a trace or physiologic amount of pulmonic regurgitation. Great Vessels: The aortic root is normal size. The dimensions of the ascending aorta are normal. The inferior vena cava was not visualized. Pericardium/ Pleura There is no pericardial effusion. There is no pleural effusion. MMode/2D Measurements & Calculations LVIDd: 3.3 cm LVOT diam: 2.1 cm LVIDs: 2.5 cm Ao root diam: 3.5 cm FS: 23.8 % asc Aorta Diam: 2.9 cm IVSd: 1.8 cm LVPWd: 1.2 cm LV ulloa. diameter/BSA (cm/m^2): 1.6 LV sys. diameter/BSA (cm/m^2): 1.2 LA A2 area: 30.3 cm2 RA long axis: 6.0 cm LA A4 area: 32.1 cm2 RA area: 17.3 cm2 LA length (vol): 7.7 cm RA vol: 42.7 ml LA vol: 107.0 ml RA : 21.4 ml/m2 LA vol index: 53.6 ml/m2 RVD1 (basal): 3.2 cm RVD2 (mid): 2.6 cm TAPSE: 1.5 cm Doppler Measurements & Calculations Ao V2 max: 126.3 cm/sec LVOT Max Nikolas: 73.1 cm/sec Ao V2 mean: 89.1 cm/sec LV V1 max P.1 mmHg Ao max P.4 mmHg LV V1 VTI: 18.7 cm Ao mean P.6 mmHg LINDSEY(I,D): 2.4 cm2 Ao V2 VTI: 28.4 cm LINDSEY(V,D): 2.1 cm2 sev ratio: 0.66 LINDSEY indexed to BSA (cm^2/m^2): 1.2 MV E max nikolas: 82.4 cm/sec TR max nikolas: 297.0 cm/sec MV A max nikolas: 20.9 cm/sec TR max P.3 mmHg MV E/A: 3.9 PA V2 max: 79.4 cm/sec Med Peak E' Nikolas: 8.6 cm/sec PA V2 mean: 55.6 cm/sec E/E' med: 9.6 PA mean P.4 mmHg Lat Peak E' Nikolas: 9.2 cm/sec PA pr(Accel): 34.5 mmHg E/E' lat: 9.0 E/e' average: 9.3 MV dec time: 0.13 sec SVLVOT): 67.3 ml Reading Physician:03:29 PM
--- NOTE | 2023-11-30 06:49 | DI.MRI.S_ITS ---
PROCEDURE: MR HEAD/BRAIN WO CON INDICATIONS: CVA TECHNIQUE: Non-contrast axial T1 spin echo, axial T2 fast spin echo, sagittal and axial FLAIR, coronal T2 fast spin echo, axial gradient echo, axial diffusion and ADC through the brain. COMPARISON: [facility], CT, CT ANGIO HEAD AND NECK, 11/29/2023, 22:00. [facility], CT, CT STROKE, 11/29/2023, 22:00. FINDINGS: Image quality: Diagnostic, with note made of motion artifact. CSF spaces: Ventricles appear symmetric in size and shape. Basal cisterns are patent. No extra-axial fluid collections. Brain: No intracranial bleeds or mass effects. There is cerebral volume loss for age. There are periventricular and deep white matter chronic small vessel ischemic changes. Brainstem appears normal. Diffusion-weighted images show no acute infarct. No chronic ischemic insults. Normal intravascular flow voids are present. Skull and face: Calvarial bone marrow is normal in signal. Orbits are normal. Note is made of bilateral lens replacements. Sinuses: Sinuses and mastoids are clear. IMPRESSION: No findings of acute or subacute infarction can be seen. Note is made of age-appropriate brain parenchymal volume loss and chronic small vessel ischemic changes. Dictated by: Marcelino Rausch M.D. on 11/30/2023 at 7:41 Approved by: Marcelino Rausch M.D. on 11/30/2023 at 7:42
[2023-11-30] MEDS: METOPROLOL IR 25 MG TABLET PO ×2 (09:07→22:27)
[2023-11-30] MEDS: APIXABAN 5 MG TABLET PO ×2 (09:07→22:26)
[2023-11-30] MEDS: SODIUM CHLORIDE 0.9% FLUSH 10 ML IV ×2 (09:07→22:34)
--- NOTE | 2023-11-30 10:02 | P.HP_ITS ---
History of Present Illness History of Present Illness Date Patient Seen: 11/30/23 Chief complaint: slurred speech/rt side tingling Narrative: From night doctor: 78 y/o with PMH of HTN, HLD, T2IDDM, peripheral neuropathy affecting legs, presented to ED after he sustained multiple, 10-20 minutes-long episodes of slurring. He describes blurring of vision as well. He has chronic b/l feet neuropathy and new right hand numbness. Does not feel weaker on the right. No headache. In the ED hypertensive. Workup negative for LVO on CTA and negative for CVA on CTH. Current update: In further speaking to him, he would symptoms of transient neurologic issues about 7 weeks ago. This includes some speech difficulty in which time his speech was unintelligible. In addition he had some tingling of his right arm and leg. Yesterday his symptoms lasted for several hours including the entire failure I would from [place]. He had slurred speech All else reviewed and otherwise unremarkable except as noted in the history and physical. The proper words were there and were intelligible. He denied any headache. He also had a wide gait, unstable stents. CT scan and CT angiogram were fairly unremarkable. MRI is also negative for acute stroke. The patient does take apixaban for AFib for about the last 4 years. The patient has had waxing and waning slurred speech overnight and this morning as well. He does not take antiplatelet agents. He denies any trauma to the head, visual symptoms or diplopia. [facility] Medical History Anemia in chronic kidney disease Diabetic retinopathy Tinea corporis Primary osteoarthritis involving multiple joints Overweight Erectile dysfunction History of iron deficiency anemia Secondary hyperparathyroidism (of renal origin) Polyneuropathy, unspecified Stage 3b chronic kidney disease (CKD) Mixed hyperlipidemia Essential hypertension Type 2 diabetes mellitus with polyneuropathy Chronic anticoagulation Chronic atrial fibrillation Gastroesophageal reflux disease History of colon polyps Surgical History History of carpal tunnel release History of cataract surgery Hx of colonoscopy (~2015) H/O hand surgery (~2010) H/O carpal tunnel repair (~2003) History of ankle surgery (~2003) Family History Father Heart disease Brother Hypertension Mother Diabetes mellitus Stroke Social History marital status: household members: spouse occupational status: previously employed Smoking Status: Former smoker alcohol intake: never substance use type: does not use Meds Home Medications and Allergies Home Medications Medication Instructions Recorded Confirmed Type [id number] (GLUCOSAMINE & 1 tab PO QDAY ##1 08/09/11 11/30/23 History CHONDROITIN PLUS) coenzyme Q10 100 mg capsule 100 mg PO DAILY 10/08/18 11/30/23 History alpha lipoic acid 120 mg PO 6XW 04/25/22 11/30/23 History cholecalciferol (vitamin D3) 50 50 mcg PO DAILY 04/25/22 11/30/23 History mcg (2,000 unit) capsule cyanocobalamin (vitamin B-12) 2,500 mcg sublingual DAILY 04/25/22 11/30/23 History 2,500 mcg sublingual tablet (Vitamin B-12) green tea extract 500 mg capsule 500 mg PO 3XW 04/25/22 11/30/23 History lysine 500 mg tablet (L-Lysine) 500 mg PO 3XW 04/25/22 11/30/23 History methylsulfonylmethane 500 mg 750 mg PO DAILY #0 caps 04/25/22 11/30/23 History capsule turmeric root extract 500 mg 1,000 mg PO 3XW 04/25/22 11/30/23 History capsule D-Ribose 1 cap PO DAILY 10/31/22 11/30/23 History glimepiride 1 mg tablet 1 mg PO DAILY 10/31/22 11/30/23 History amlodipine 2.5 mg tablet 2.5 mg PO DAILY #90 tabs 05/20/23 11/30/23 Rx metformin 500 mg tablet 1,000 mg (2 x 500 mg) PO BID #360 05/20/23 11/30/23 Rx tabs simvastatin 10 mg tablet 10 mg PO HS #90 tabs 05/20/23 11/30/23 Rx metoprolol tartrate 25 mg tablet 25 mg PO BID #180 tabs 08/12/23 11/30/23 Rx apixaban 5 mg tablet (Eliquis) 5 mg PO BID #180 tabs 11/17/23 11/30/23 Rx empagliflozin 25 mg tablet 25 mg PO DAILY #90 tabs 11/17/23 11/30/23 Rx (Jardiance) insulin glargine 100 unit/mL (3 12 unit SUBCUT QPM 11/27/23 11/30/23 History mL) subcutaneous pen (Lantus Solostar U-100 Insulin) Allergies Allergy/AdvReac Type Severity Reaction Status Date / Time diclofenac [From Voltaren] Allergy Intermediate rash (gel) Verified 11/27/23 13:10 lisinopril AdvReac Intermediate hyperkalemi Verified 11/27/23 13:10 a losartan AdvReac Intermediate hyperkalemi Verified 11/27/23 13:10 a Review of Systems Review of Systems Narrative: All else reviewed and otherwise unremarkable except as noted in the history and physical. Exam Vital Signs (past 8 hours): - 11/30/23 07:00 Temperature 97.1 F L Pulse Rate 86 Respiratory Rate 20 Blood Pressure 178/83 H Pulse Oximetry 98 Oxygen Flow Rate 0 Oxygen Delivery Method Room Air Oxygen Flow Rate 0 Narrative Exam Narrative: NAD, alert and oriented, fluent speech, calm. Normocephalic skull, EOMI, anicteric sclera, symmetric pupils. Oropharynx unremarkable, no droop. Neck supple, midline trachea, no adenopathy. Lungs clear, normal rate and effort. Heart regular, no murmur gallop or rub. Abdomen is soft, non distended and non tender. Extremities are free of edema. Skin is free of rash or lesions. Joints are not swollen or deformed. Judgment appears to be normal. Cranial nerves are intact, judgment is normal, speech is normal, he does have slight slurring. Motor strength is 5/5 all extremities, gait is slightly wide based. He has a negative pronator drift. Objective Imaging Multiple colon: Radiologist's impression: CT scan brain normal. CT angiogram of the head and neck normal. MRI of the brain normal. Echo: Pending. Labs 11/30/23 05:05 11/30/23 05:05 Labs: Laboratory Results - last 24 hr 11/29/23 11/29/23 11/29/23 21:58 22:00 22:50 WBC 7.6 RBC 4.59 Hgb 14.3 Hct 42.7 MCV 93.1 MCH 31.2 MCHC 33.5 RDW 14.4 Plt Count 202 Neut % (Auto) 68.1 Lymph % (Auto) 19.3 L Mckinley % (Auto) 7.8 Eos % (Auto) 4.0 Baso % (Auto) 0.8 Neut # (Auto) 5100 Lymph # (Auto) 1500 Mckinley # (Auto) 600 Eos # (Auto) 300 Baso # (Auto) 100 PT 12.4 INR 1.1 APTT 45 H Sodium 137 Potassium 4.0 Chloride 105 Carbon Dioxide 24 BUN 30 H Creatinine 1.41 H Estimated GFR 51 L BUN/Creatinine Ratio 21.3 Glucose 130 H Calcium 9.2 Total Bilirubin 0.9 AST 24 ALT 20 Alkaline Phosphatase 100 Total Creatine Kinase 89 Troponin I < 0.012 Total Protein 8.0 Albumin 4.9 Globulin 3.1 Albumin/Globulin Ratio 1.6 Triglycerides Cholesterol LDL Cholesterol, Calc HDL Cholesterol Urine RBC 0-1/hpf Urine WBC None seen Ur Squamous Epith Cells 0-1 /hpf Urine Bacteria None seen Ur Culture Indicated? Cult not indicated Vol Urine Centrifuged 10ml (spun) U Opiates 300ng/mL cut Negative Ur Oxycodone Screen Negative Urine Methadone Screen Negative Ur Barbiturates Screen Negative U Tricyclic Antidepress Negative Ur Phencyclidine Scrn Negative Ur Amphetamines Screen Negative U Methamphetamines Scrn Negative Ur MDMA Scrn (Ecstasy) Negative U Benzodiazepines Scrn Negative Urine Cocaine Screen Negative U Marijuana (THC) Screen Negative Urine pH Normal Urine Specific [place] Normal Ethyl Alcohol < 10 Ur Creatinine Normal SARS-CoV-2 (PCR) Negative 11/30/23 05:05 WBC 6.2 RBC 3.98 L Hgb 12.5 L Hct 36.8 L MCV 92.5 MCH 31.3 MCHC 33.9 RDW 14.5 Plt Count 162 Neut % (Auto) 66.7 Lymph % (Auto) 20.0 L Mckinley % (Auto) 8.4 Eos % (Auto) 3.9 Baso % (Auto) 1.0 Neut # (Auto) 4200 Lymph # (Auto) 1200 Mckinley # (Auto) 500 Eos # (Auto) 200 Baso # (Auto) 100 PT INR APTT Sodium 138 Potassium 3.6 Chloride 110 H Carbon Dioxide 22 BUN 31 H Creatinine 1.51 H Estimated GFR 47 L BUN/Creatinine Ratio 20.5 Glucose 127 H Calcium 8.6 Total Bilirubin AST ALT Alkaline Phosphatase Total Creatine Kinase Troponin I Total Protein Albumin Globulin Albumin/Globulin Ratio Triglycerides 89 Cholesterol 121 L LDL Cholesterol, Calc 64 HDL Cholesterol 39 L Urine RBC Urine WBC Ur Squamous Epith Cells Urine Bacteria Ur Culture Indicated? Vol Urine Centrifuged U Opiates 300ng/mL cut Ur Oxycodone Screen Urine Methadone Screen Ur Barbiturates Screen U Tricyclic Antidepress Ur Phencyclidine Scrn Ur Amphetamines Screen U Methamphetamines Scrn Ur MDMA Scrn (Ecstasy) U Benzodiazepines Scrn Urine Cocaine Screen U Marijuana (THC) Screen Urine pH Urine Specific [place] Ethyl Alcohol Ur Creatinine SARS-CoV-2 (PCR) Assessment & Plan Assessment & Plan narrative: 1. Apparent stuttering TIA, present on admission and active. -negative imaging. -multiple episodes of similar symptoms over 24 hours, a similar episode with speech problems 7 weeks ago. He has been on apixaban for 4 years. His symptoms appear to be largely recurrent and focal with speech. - BP control - echo pending -aspirin 81 mg daily. 2. HTN, present on admission and active. - uncontrolled, monitor blood pressure. - metoprolol, prn labetalol 3. A-fib, present on admission and active. - anticoagulated, continue apixaban. - metoprolol 4. DM 2, present on admission and active. - insulin, Jardiance - A1C 7.7 a week ago He will require a 2nd midnight of care to monitor his ongoing stuttering TIA symptoms. We will add antiplatelet therapy and see if his improvement of frequency of symptoms. He is at high risk for completed stroke. He is full resuscitation, his is proxy. They live on [place]. Time Spent With Patient Time with patient: 30 to 49 minutes with 50% spent counseling/coordinating care Quality MIPS - Admit I confirm the patient?s Advance Care Plan is present, Code status is documented, Surrogate decision maker is in patient?s record [If Yes, STOP here]: Yes MIPS - Meds 'Current medications' to include all prescriptions, [id number] products, herbals, cannabis/cannabidiol products, and vitamin/mineral/dietary (nutritional) supplements. I have utilized all available resources to obtain, update, or review the patient?s current medications. [If Yes, STOP here]: Yes
--- NOTE | 2023-11-30 11:23 | PC.NURSE ---
Patient's tele monitor showing alot of artifact, but heart rate did jump up into 200's. Nurse was notified, states patient is anxious and walking around in room. Provider notified, no new orders at this time. Nurse in room replacing leads on patient.
[2023-11-30] MEDS: ASPIRIN EC 81 MG TABLET PO (11:50)
--- NOTE | 2023-11-30 14:42 | PT.IIE ---
Current Diagnoses Type 2 diabetes mellitus with diabetic polyneuropathy (11/29/23) Mixed hyperlipidemia (11/29/23) Transient cerebral ischemic attack, unspecified (11/29/23) Essential (primary) hypertension (11/29/23) Chronic atrial fibrillation, unspecified (11/29/23) Chronic kidney disease, stage 3b (11/29/23) Surgical History (Last Reviewed 11/30/23 @ 10:04 by Zhang Blake MD) H/O carpal tunnel repair (~2003) H/O hand surgery (~2010) History of ankle surgery (~2003) History of carpal tunnel release History of cataract surgery Hx of colonoscopy (~2015) Medical History (Last Reviewed 11/30/23 @ 10:04 by Zhang Blake MD) Anemia in chronic kidney disease Chronic anticoagulation Chronic atrial fibrillation Diabetic retinopathy Erectile dysfunction Essential hypertension Gastroesophageal reflux disease History of colon polyps History of iron deficiency anemia Mixed hyperlipidemia Overweight Polyneuropathy, unspecified Primary osteoarthritis involving multiple joints Secondary hyperparathyroidism (of renal origin) Stage 3b chronic kidney disease (CKD) Tinea corporis Type 2 diabetes mellitus with polyneuropathy Physical Therapy Inpatient Evaluation/Re-Eval M1 PT/OT-IP Prior Functional Status Start: 11/30/23 14:06 Freq: NEEDED Status: Active Protocol: Document 11/30/23 14:05 MB (Rec: 11/30/23 14:42 MB [id number]) Medical Review Prior Functional Status Medical History Reviewed Yes Diet/Fluid Consistency Regular Communication WNLs Mobility and Gait I Activities of Daily Living and IADL's I Social History Household Members spouse Living Arrangements House Number of Floors (Floors) One Floor Number of Stairs To Enter/Railing? 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 exercises M2 PT-IP Current Condition Start: 11/30/23 14:06 Freq: NEEDED Status: Active Protocol: Document 11/30/23 14:05 MB (Rec: 11/30/23 14:42 MB [id number]) Physical Therapy Current Condition Current Condition Evaluation Date 11/30/23 Treatment Diagnosis Speech changes, right hand tingling and increased B LE tingling M3 PT-IP Subjective Start: 11/30/23 14:06 Freq: NEEDED Status: Active Protocol: Document 11/30/23 14:05 MB (Rec: 11/30/23 14:42 MB [id number]) Subjective Physical Therapy Visit Type Type Initial Evaluation Visit Start Time 14:05 Visit Stop Time 14:29 Number of COMMERCIAL MAKEUP ARTIST Visits 0 Physical Therapy Visit Comments Patient Comments Pt is agreeable to PT. Pt and state that pt is still not normal with speech, sensation of right hand and B feet. He reports baseline neuropathy of his feet but states they do not feel normal . Therapy Pain Assessment Pain When Pain Assessed At Rest Pain Present Pain Present Denied Pain M4 PT-IP Mobility and Gait Start: 11/30/23 14:06 Freq: NEEDED Status: Active Protocol: Document 11/30/23 14:05 MB (Rec: 11/30/23 14:42 MB [id number]) PT-Bed Mobility Assessment Rolling Level of Assist Independent Supine to Sit Supine to Sit Independent Sit to Supine Sit to Supine Independent Scooting Scooting to Edge of Bed Independent Scooting Up and Down in Bed Independent PT-Transfer Assessment Sit to and From Stand Sit to and from Stand Contact Guard Assistance,1 Person Assistance Equipment Transfer Assistive Device Gait Belt Orthotic/Prosthetic Devices or Brace: No Transfers Transfer Destination Bed Transfer Technique Walking Transfer Ability Level of Assist Contact Guard Assistance Gait Assessment Gait Gait Assistance Required: Contact Guard Assist Distance (Feet) 70 Able to Maintain Weight Bearing Status Yes During Gait Assistive Devices Assistive Device Gait Belt Orthotic/Prosthetic Devices or Brace: No Factors Limiting Gait Function Factors Limiting Gait Function Incoordination,Poor Balance Comments Gait Comments After gait, pt states that he typically doesn't walk in socks and he would like to try gait in shoes and try cane next date. He has some unsteadiness and unequal step- length and foot clearance, imbalance with forward walking with eyes closed and backwards walking with eyes opened, decreased head turns with checking gait with head turns. Stair Climbing Assessment Evaluation Level of Assist On Stairs Contact Guard Assistance Devices Stair Climbing Assistive Devices Left Railing Technique/Endurance Stair Climbing Direction Ascend and Descend Stair Climbing Technique Step Over Step Number of Steps Climbed 3 Query Text: Stair Climbing Set # Repetitions (reps) 1 Comments Stair Climbing Comments Some evidence of imbalance stepping up to top step PT-Balance Assessment Sitting Balance and Reactions Static Sitting Balance Ability Normal Dynamic Sitting Balance Ability Normal Standing Balance and Reactions Static Standing Balance Ability Good Dynamic Standing Balance Ability Good M5 PT-IP Objective Assessments Start: 11/30/23 14:06 Freq: NEEDED Status: Active Protocol: Document 11/30/23 14:05 MB (Rec: 11/30/23 14:42 MB [id number]) Orientation Orientation/Cognition Level of Alertness Alert Orientation Name,Age,Birthday,Month,Date, Year,Day of Week,Place, Situation Language Function Ability Expressive Aphasia,Word Finding Difficulties Safety Awareness Decreased Safety Awareness Memory Description No Deficits Noted Gross Range of Motion Upper Extremity ROM Assessment Within Functional Limits Lower Extremity ROM Assessment Within Functional Limits Strength Lower Extremity Strength Assessment Within Functional Limits Comments Strength Comments R shoulder abduction and flexion similar to the left and normal Coordination Assessment Assessment Finger to Nose Test Moderate Impairment Pronation/Supination Test Minimal Impairment Foot Tapping Test Normal Performance Coordination Comments Minimal impairment right rapid supination and pronation and moderate impairment right finger to nose Sensation Assessment Comments Sensation Comments Pt reports right hand paresthesias and B feet paresthesias that are worse than his baseline B feet neuropathy. He reports tingling in hand and feet. M6 PT-IP Treatment Start: 11/30/23 14:06 Freq: NEEDED Status: Active Protocol: Document 11/30/23 14:05 MB (Rec: 11/30/23 14:42 [id number]) Physical Therapy Treatment Education Education Provided Safety M7 PT-IP Assessment and Plan Start: 11/30/23 14:06 Freq: NEEDED Status: Active Protocol: Document 11/30/23 14:05 MB (Rec: 11/30/23 14:42 [id number]) PT Summary Assessment and Plan Potential Rehabilitation Potential Good Status of Condition at Evaluation Evolving Summary Impairments Balance,Coordination,Sensation ,Transfers,Gait,Activity Tolerance Progress Towards Goals Progressing Toward Goals Assessment Summary Pt is a pleasant 78 y/o male presenting with right sided dysmetria with finger to nose and rapid supination and pronation. He reports ongoing tingling in right hand and B feet with B feet tingling different or worse than his baseline neuropathic changes. He and report that his speech is still not normal. Recommend CONVEYOR BELT REPAIRER and OT consults and PT spoke with MD. Gait is imbalanced and especially with EC and backwards walking and performing steps. Will try gait with shoes and cane next treatment date. [place] [facility] [place] Goals Transfer Goal Independent,Cane,Front Wheeled Walker Gait Goal Independent,Cane,Front Wheel Walker Gait Distance 100 Other Goals Pt will ascend and descend 3 steps with left rail and superv. Days to Meet Goals 2 Frequency of Treatment Frequency Of Treatment Once a Day Treatment Plan Physical Therapy Treatment Plan Transfer Training,Gait Training,Balance Retraining, Discharge Planning, Neuromuscular Re-ed, Coordination Retraining Weight Bearing Status Weight Bearing Status Weight Bear as Tolerated Recommendations To Nursing Amount of Assist Needed Standby Assistance,1 Person Assist Discharge Recommendations PT Discharge Recommendations Home with 24/02 Assist Available,Outpatient PT Transportation Needs at Discharge Private Vehicle
--- NOTE | 2023-11-30 15:57 | CM.DANOTE ---
DCP Assessment Note Pt is a 78yo M here following slurred speech/suspected TIA/CVA. PCP Elizabeth Payer Enedelia and self pay FRONT END DRUPAL DEVELOPER reviewed EMR. Per hospitalist, pt continues to have neuro deficits, wants to keep pt another day. Anticipate dc tomorrow after speech/OT evals. Per PT, rec home with OP. FRONT END DRUPAL DEVELOPER met with pt and spouse in room. Pt lives on [address], active and indep at baseline. Deny hx of HH. Preference is OP f/u care. Report only DCP need would be priority [place] pass[place] worried about getting [place] for night time meds. Deny other CM needs. Plan: anticipate dc Friday. CM will f/u about priority boarding pass. CM team will follow closely for additional DCP needs. SHASHANK Gonzalez Discharge Planning/Care Management CM Discharge Assessment Start: 11/30/23 15:55 Freq: Status: Active Protocol: Document 11/30/23 15:55 (Rec: 11/30/23 15:57 [id number]) Discharge Planning Assessment Assigned Civil Service Worker SHASHANK Michelle DPOA/Assigned Designee Name Karrie, spouse Contact Information [phone] Advance Directives? No History Provided By Patient,Significant Other Prior Living Arrangements House Household Members spouse Independent with ADL's Yes Is patient alert and oriented? Yes Comment pt [place] Discharge Plan Home Referrals Initiated None needed Whiteboard Updated in Patient Room with Yes name and ext. # of Civil Service Worker Review Status In Process Please Provide Date Initial DC 11/30/23 Assessment Was Performed Next Review Type Continued Stay Review
[2023-11-30] MEDS: ATORVASTATIN 20 MG TABLET 10 MG PO (22:26)
[2023-11-30] MEDS: INSULIN GLARGINE 100 UNIT/ML 3ML PEN 12 UNIT SUBCUT (22:27)
[2023-12-01 01:16] VITALS: BP 128/56; PULSE 71; RESP 18; TEMP 36.1; O2SAT 94
[2023-12-01 05:46] VITALS: BP 134/69; PULSE 65; RESP 18; TEMP 35.9; O2SAT 97
[2023-12-01] MEDS: METOPROLOL IR 25 MG TABLET PO (08:14)
[2023-12-01] MEDS: APIXABAN 5 MG TABLET PO (08:14)
[2023-12-01 08:19] VITALS: BP 152/74; PULSE 66; RESP 16; TEMP 36.1; O2SAT 95
--- NOTE | 2023-12-01 08:33 | PM.DS.1 ---
History of Present Illness History of Present Illness Chief complaint: slurred speech/rt side tingling Narrative: From night doctor: 78 y/o with PMH of HTN, HLD, T2IDDM, peripheral neuropathy affecting legs, presented to ED after he sustained multiple, 10-20 minutes-long episodes of slurring. He describes blurring of vision as well. He has chronic b/l feet neuropathy and new right hand numbness. Does not feel weaker on the right. No headache. In the ED hypertensive. Workup negative for LVO on CTA and negative for CVA on CTH. Current update: In further speaking to him, he would symptoms of transient neurologic issues about 7 weeks ago. This includes some speech difficulty in which time his speech was unintelligible. In addition he had some tingling of his right arm and leg. Yesterday his symptoms lasted for several hours including the entire failure I would from [place]. He had slurred speech All else reviewed and otherwise unremarkable except as noted in the history and physical. The proper words were there and were intelligible. He denied any headache. He also had a wide gait, unstable stents. CT scan and CT angiogram were fairly unremarkable. MRI is also negative for acute stroke. The patient does take apixaban for AFib for about the last 4 years. The patient has had waxing and waning slurred speech overnight and this morning as well. He does not take antiplatelet agents. He denies any trauma to the head, visual symptoms or diplopia. Discharge Providers Provider Date of admission: 11/29/23 23:41 Discharge Date: 12/31/23 Primary care physician: Reagan Johnson MD Consults: 11/29/23 23:48 Consult to Speech Therapy Evaluate & Treat Comment: Physician Instructions: Evaluate and treat 11/30/23 10:12 Consult to Physical Therapy Evaluate & Treat Comment: Physician Instructions: Evaluate and Treat 11/30/23 10:21 Consult to Physical Therapy Evaluate & Treat Comment: Physician Instructions: Evaluate and Treat Discharge provider: Zhang Blake MD Summary Hospital Course Discharge Diagnosis: 1. Apparent stuttering TIA, present on admission and active. 2. HTN, present on admission and active. 3. A-fib, present on admission and active. 4. DM 2, present on admission and active. 5. Chronic kidney disease stage 3 B, present on admission and stable. 6. Essential hypertension, present on admission and stable. 7. Chronic anticoagulation, present on admission and active. 8. Hyperlipidemia, present on admission and stable. Hospital Course: Patient was admitted with difficulty speaking. This is described as slurred speech and he would 1 previous episode several weeks ago that also involved speech transiently. This was more of nonsensical speaking or possibly word salad. The patient was started on aspirin for possible TIA. An MRI was negative for stroke. CT angiogram was fairly normal in appearance as well. The patient improved after being started on aspirin. I did discuss the case with his primary care doctor, Dr. Johnson. There was a neither patient will turn home and have close follow up with Dr. Johnson and also keep him apprised further neurologic symptoms. The patient is on chronic apixaban and the baby aspirin will be added to this. Status at Discharge Cognitive/behavioral status at discharge: oriented Functional status at discharge: independent ambulation Overall status at discharge: patient is back to baseline Time Spent with Patient Time spent: Greater than 30 minutes Exam Vital Signs (past 8 hours): - 12/01/23 01:16 12/01/23 05:46 12/01/23 08:19 Temperature 96.9 F L 96.6 F L 96.9 F L Pulse Rate 71 65 66 Respiratory Rate 18 18 16 Blood Pressure 128/56 L 134/69 152/74 H Pulse Oximetry 94 97 95 Oxygen Flow Rate 0 0 0 Oxygen Delivery Method Room Air Oxygen Flow Rate 0 Narrative Exam Narrative: NAD, alert and oriented. Fluent speech. Lungs are clear, normal rate and effort. Heart is regular, no murmur gallop or rub. Abdomen is soft, non distended. Extremities are free of edema. Normal speech, normal cognition. Normal gait, able to walk briskly without any senior administrative assistant devices Objective ECG Impression: AF Imaging Multiple studies:: Radiologist's impression: MRI brain: No abnormalities. CT brain: No abnormalities. CT angiogram of head and neck:No significant intracranial arterial abnormality is seen. No significant abnormality is seen within the arteries of the neck. Echo: Radiologist's impression: The patient was in atrial fibrillation with heart rates between 63-86 bpm during the exam. There is mild concentric left ventricular hypertrophy. The ejection fraction is estimated to be 55-60%. Diastolic function could not be accurately assessed due to atrial fibrillation. The left atrium is severely dilated. The right ventricle is normal in size and function. There is mild aortic regurgitation. Pulmonary artery pressures cannot be estimated because of the lack of a measurable TR jet velocity. Compared to the prior study dated 12/03/2017, the left ventricle appears less dynamic. Labs 11/30/23 05:05 11/30/23 05:05 [facility] Medical History Anemia in chronic kidney disease Diabetic retinopathy Tinea corporis Primary osteoarthritis involving multiple joints Overweight Erectile dysfunction History of iron deficiency anemia Secondary hyperparathyroidism (of renal origin) Polyneuropathy, unspecified Stage 3b chronic kidney disease (CKD) Mixed hyperlipidemia Essential hypertension Type 2 diabetes mellitus with polyneuropathy Chronic anticoagulation Chronic atrial fibrillation Gastroesophageal reflux disease History of colon polyps Surgical History History of carpal tunnel release History of cataract surgery Hx of colonoscopy (~2015) H/O hand surgery (~2010) H/O carpal tunnel repair (~2003) History of ankle surgery (~2003) Family History Father Heart disease Brother Hypertension Mother Diabetes mellitus Stroke Social History marital status: household members: spouse occupational status: previously employed Smoking Status: Former smoker alcohol intake: never substance use type: does not use Discharge Assessment & Plan Assessment and Plan Assessment: 1. Apparent stuttering TIA, present on admission and active. 2. HTN, present on admission and active. 3. A-fib, present on admission and active. 4. DM 2, present on admission and active. 5. Chronic kidney disease stage 3 B, present on admission and stable. 6. Essential hypertension, present on admission and stable. 7. Chronic anticoagulation, present on admission and active. 8. Hyperlipidemia, present on admission and stable. Plan of Treatment: He was discharged home with the addition of aspirin to his chronic medical therapies. Case discussed with his primary care who he will stay in touch with. He is advised to seek medical attention for acute neurologic symptoms. He was started on both aspirin 81 mg daily as well as gabapentin 300 mg p.o. b.i.d.. Discharge Plan Discharge Plan Patient Disposition: Home Provider Discharge Comment: Stable for discharge home, discussed with Dr. Johnson (PCP) [id number]. Discharge medication plan has been revised. Discharge orders & Medications Prescriptions: New aspirin 81 mg capsule 81 mg PO DAILY Qty: 30 11RF gabapentin 300 mg capsule 300 mg PO BID Qty: 60 11RF Continued [id number] (GLUCOSAMINE & CHONDROITIN PLUS) 1 tab PO QDAY Qty: 1 methylsulfonylmethane 500 mg capsule 750 mg PO DAILY Qty: 0 metformin 500 mg tablet 1,000 mg PO BID Qty: 360 3RF amlodipine 2.5 mg tablet 2.5 mg PO DAILY Qty: 90 3RF simvastatin 10 mg tablet 10 mg PO HS Qty: 90 3RF metoprolol tartrate 25 mg tablet 25 mg PO BID Qty: 180 3RF Jardiance 25 mg tablet 25 mg PO DAILY Qty: 90 3RF Eliquis 5 mg tablet 5 mg PO BID Qty: 180 3RF glimepiride 1 mg tablet 1 mg PO DAILY D-Ribose 1,700 mg capsule 1 cap PO DAILY alpha lipoic acid 120 mg PO 6XW cholecalciferol (vitamin D3) 50 mcg (2,000 unit) capsule 50 mcg PO DAILY cyanocobalamin (vitamin B-12) [Vitamin B-12] 2,500 mcg tablet, sublingual 2,500 mcg sublingual DAILY insulin glargine [Lantus Solostar U-100 Insulin] 100 unit/mL (3 mL) insulin pen 12 unit SUBCUT QPM coenzyme Q10 100 mg capsule 100 mg PO DAILY green tea extract 500 mg capsule 500 mg PO 3XW lysine [L-Lysine] 500 mg tablet 500 mg PO 3XW turmeric root extract 500 mg capsule 1,000 mg PO 3XW Medication counseling provided by Pharmacist: No Follow up/Referrals: Reagan Johnson MD [Primary Care Provider] - Discharge Health Status Multidrug resistant organism: No MDRO Diet/Activity/Treatments Diet: Carb-consistent/Diabetic Activity: As tolerated Visit Report/Discharge Packet Stand Alone Forms: Patient Portal/API, Stroke Signs & Symptoms Discharge Data Primary Care Provider: Reagan Johnson V Attending Provider: Ivan Tejada Admit Date/Time: 11/29/23 23:41 Quality MIPS - DC The patient has a history of heart transplant or Left Ventricular Assist Device (LVAD). If yes, STOP here.: No The patient has current or prior documentation of left ventricular ejection fraction (LVEF) less than or equal to 40%, or moderate or severely depressed left ventricular systolic function.: No
--- NOTE | 2023-12-01 08:40 | CM.DPNOTE ---
DCP Note SMOKING PIPES CLEANER reviewed EMR. Per provider, pt cleared to dc home with spouse today. SMOKING PIPES CLEANER met with pt in room. Spouse and pt eager to dc in time for [address] to [place]. report they have a reservation and do not want a priority boarding pass. Deny other CM needs. SMOKING PIPES CLEANER updated RN on pt's eagerness to dc. Plan: pt to dc today home with spouse to [place]. No CM needs identified. CM team will continue to follow as needed. SHASHANK Gonzalez
--- NOTE | 2023-12-01 08:50 | PT.IPTN ---
Current Diagnoses Type 2 diabetes mellitus with diabetic polyneuropathy (11/29/23) Mixed hyperlipidemia (11/29/23) Transient cerebral ischemic attack, unspecified (11/29/23) Essential (primary) hypertension (11/29/23) Chronic atrial fibrillation, unspecified (11/29/23) Chronic kidney disease, stage 3b (11/29/23) Physical Therapy Treatment Note M2 PT-IP Current Condition Start: 11/30/23 14:06 Freq: NEEDED Status: Active Protocol: Document 11/30/23 14:05 MB (Rec: 11/30/23 14:42 MB [id number]) Physical Therapy Current Condition Current Condition Evaluation Date 11/30/23 Treatment Diagnosis Speech changes, right hand tingling and increased B LE tingling M3 PT-IP Subjective Start: 11/30/23 14:06 Freq: NEEDED Status: Active Protocol: Document 12/01/23 08:35 MB (Rec: 12/01/23 08:50 MB [id number]) Subjective Physical Therapy Visit Type Type Treatment Note Visit Start Time 08:35 Visit Stop Time 08:45 Number of [facility] Vis[facility] Physical Therapy Visit Comments Patient Comments Pt is up I with upon PT arrival and states he is feeling much better. Per SW, they declined OT and speech consults and are ready to d/c. Pt is agreeable to PT. Therapy Pain Assessment Pain When Pain Assessed At Rest Pain Present Pain Present Denied Pain M4 PT-IP Mobility and Gait Start: 11/30/23 14:06 Freq: NEEDED Status: Active Protocol: Document 12/01/23 08:35 MB (Rec: 12/01/23 08:50 MB [id number]) PT-Transfer Assessment Sit to and From Stand Sit to and from Stand Independent Equipment Transfer Assistive Device Gait Belt Orthotic/Prosthetic Devices or Brace: No Gait Assessment Gait Gait Assistance Required: Independent Distance (Feet) 100 Able to Maintain Weight Bearing Status Yes During Gait Assistive Devices Assistive Device Gait Belt,Straight Cane Comments Gait Comments Gait training with straight cane in right hand today and without AD. Pt also has shoes donned and his gait is much more steady, with and without cane. He gait trains 100'x2 with mod I to I. Stair Climbing Assessment Evaluation Level of Assist On Stairs Independent Devices Stair Climbing Assistive Devices Left Railing Technique/Endurance Stair Climbing Direction Ascend and Descend Stair Climbing Technique Step Over Step Number of Steps Climbed 3 Stair Climbing Set # Repetitions (reps) 1 Comments Stair Climbing Comments Pt carries cane in opposite hand and does not use it PT-Balance Assessment Sitting Balance and Reactions Static Sitting Balance Ability Normal Dynamic Sitting Balance Ability Normal Standing Balance and Reactions Static Standing Balance Ability Normal Dynamic Standing Balance Ability Good Device Used Cane and no cane M5 PT-IP Objective Assessments Start: 11/30/23 14:06 Freq: NEEDED Status: Active Protocol: Document 11/30/23 14:05 MB (Rec: 11/30/23 14:42 MB [id number]) Orientation Orientation/Cognition Level of Alertness Alert Orientation Name,Age,Birthday,Month,Date, Year,Day of Week,Place, Situation Language Function Ability Expressive Aphasia,Word Finding Difficulties Safety Awareness Decreased Safety Awareness Memory Description No Deficits Noted Gross Range of Motion Upper Extremity ROM Assessment Within Functional Limits Lower Extremity ROM Assessment Within Functional Limits Strength Lower Extremity Strength Assessment Within Functional Limits Comments Strength Comments R shoulder abduction and flexion similar to the left and normal Coordination Assessment Assessment Finger to Nose Test Moderate Impairment Pronation/Supination Test Minimal Impairment Foot Tapping Test Normal Performance Coordination Comments Minimal impairment right rapid supination and pronation and moderate impairment right finger to nose Sensation Assessment Comments Sensation Comments Pt reports right hand paresthesias and B feet paresthesias that are worse than his baseline B feet neuropathy. He reports tingling in hand and feet. M6 PT-IP Treatment Start: 11/30/23 14:06 Freq: NEEDED Status: Active Protocol: Document 11/30/23 14:05 MB (Rec: 11/30/23 14:42 MB [id number]) Physical Therapy Treatment Education Education Provided Safety M7 PT-IP Assessment and Plan Start: 11/30/23 14:06 Freq: NEEDED Status: Active Protocol: Document 12/01/23 08:35 MB (Rec: 12/01/23 08:50 MB [id number]) PT Summary Assessment and Plan Potential Rehabilitation Potential Good Status of Condition at Evaluation Evolving Summary Impairments Balance,Coordination,Sensation ,Transfers,Gait,Activity Tolerance Progress Towards Goals Progressing Toward Goals Assessment Summary Johnny states that he is feeling a lot better this morning and states that he is back to normal. They have declined OT and speech evaluations. He does much better with gait with shoes donned with and without cane. Discussed S&S of stroke and risk factors for stroke and not waiting to get medical care if symptoms occur in the future. Discussed breathing well with exercise and considering taking BP before and after exercise. Goals Transfer Goal Independent,Cane,Front Wheeled Walker Gait Goal Independent,Cane,Front Wheel Walker Gait Distance 100 Other Goals Pt will ascend and descend 3 steps with left rail and superv. Days to Meet Goals 2 Frequency of Treatment Frequency Of Treatment Discharge Treatment Plan Physical Therapy Treatment Plan Transfer Training,Gait Training,Balance Retraining, Discharge Planning, Neuromuscular Re-ed, Coordination Retraining Weight Bearing Status Weight Bearing Status Weight Bear as Tolerated Recommendations To Nursing Amount of Assist Needed Standby Assistance,1 Person Assist Discharge Recommendations PT Discharge Recommendations Home with / Assist Available,Outpatient PT Transportation Needs at Discharge Private Vehicle
[2023-12-01] MEDS: ASPIRIN EC 81 MG TABLET PO (10:01)
[2023-12-01] MEDS: GABAPENTIN 300 MG CAPSULE PO (10:01)
--- NOTE | 2023-12-01 11:51 | CM.MNRNOTE ---
Patient is A&OX4, VSS, afebrile on RA. He is medically cleared for discharge home today back to [place] with his after breakfast. He states minimal numbness and tingling to B feet and R hand. [place]. He verbalizes understanding of medications, follow up and discharge plan. He is escorted with RN and to private vehicle for discharge today at 1015 a.m. with all of his belongings
== END 2023-12-01 10:15 | disposition home or self-care (01) ==
LOC: ED 23:41 → AC 23:42
PROVIDERS: Admitting Provider Internal Medicine; Emergency Provider Emergency Medicine; PCP Internal Medicine; Referring Provider Emergency Medicine; Visit Provider Internal Medicine
DX: G45.9 Transient cerebral ischemic attack, unspecified (principal); I10 Essential (primary) hypertension; N18.32 Chronic kidney disease, stage 3b; I48.20 Chronic atrial fibrillation, unspecified; E11.42 Type 2 diabetes mellitus with diabetic polyneuropathy; E78.2 Mixed hyperlipidemia; Z11.52 Encounter for screening for COVID-19; R29.700 NIHSS score 0
CPT/HCPCS: 36415; 70450; 70496; 70498; 70551; 80048; 80053; 80061; 80305; 80320; 81003; 81015; 82550; 82962; 84484; 85025; 85610; 85730; 87635; 93005; 93306; 96372; 96374; 97116; 97161; 99284; G0378; J1815; Q9967

== ENCOUNTER → 2024-02-17 07:28 | Outpatient (CLI) | payer MEDICARE, SELFPAY ==
[2023-11-30 00:51] VITALS: BMI 25.8
[2024-02-17 08:52] LABS: BUN Creatinine Ratio 23.1 (6-22); Blood Urea Nitrogen 40 mg/dL (9-20); Calcium 8.4 mg/dL (8.4-10.2); Carbon Dioxide 23 mmol/L (22-32); Chloride 109 mmol/L (98-107); Estimated Glomerular Filt Rate 40 mL/min (>60); Glucose 86 mg/dL (80-110); HEMOLYSIS < 15 (0-50); Sodium 138 mmol/L (137-145)
[2024-02-17 11:32] LABS: Hemoglobin A1C% w Est Avg Glu 6.4 % (4.0-6.0)
== END ==
PROVIDERS: PCP Internal Medicine; Referring Provider Internal Medicine; Visit Provider Internal Medicine
DX: E11.42 Type 2 diabetes mellitus with diabetic polyneuropathy (principal); N18.32 Chronic kidney disease, stage 3b
CPT/HCPCS: 36415; 80048; 83036

== ENCOUNTER → 2024-06-01 07:36 | Outpatient (CLI) | payer MEDICARE, SELFPAY ==
[2023-11-30 00:51] VITALS: BMI 25.8
[2024-06-01 08:36] LABS: Hemoglobin A1C% w Est Avg Glu 8.2 % (4.0-6.0)
[2024-06-01 09:06] LABS: BUN Creatinine Ratio 23.4 (6-22); Blood Urea Nitrogen 37 mg/dL (9-20); Calcium 8.6 mg/dL (8.4-10.2); Carbon Dioxide 23 mmol/L (22-32); Chloride 107 mmol/L (98-107); Estimated Glomerular Filt Rate 45 mL/min (>60); Glucose 105 mg/dL (80-110); HEMOLYSIS < 15 (0-50); Potassium 3.9 mmol/L (3.4-5.1); Sodium 137 mmol/L (137-145)
[2024-06-01 09:12] LABS: Creatinine Urine Random 49.88 mg/dL
[2024-06-01 10:36] LABS: Microalbumin Urine Random 51.2 mg/dL (0-1.6)
== END ==
PROVIDERS: PCP Internal Medicine; Referring Provider Internal Medicine; Visit Provider Internal Medicine
DX: E11.42 Type 2 diabetes mellitus with diabetic polyneuropathy (principal); I48.20 Chronic atrial fibrillation, unspecified; Z79.01 Long term (current) use of anticoagulants; D68.69 Other thrombophilia; E11.22 Type 2 diabetes mellitus with diabetic chronic kidney disease; Z79.4 Long term (current) use of insulin; N18.32 Chronic kidney disease, stage 3b; E11.319 Type 2 diabetes mellitus with unspecified diabetic retinopathy without macular edema; I12.9 Hypertensive chronic kidney disease with stage 1 through stage 4 chronic kidney disease, or unspecified chronic kidney disease; E78.2 Mixed hyperlipidemia; N52.9 Male erectile dysfunction, unspecified; D63.1 Anemia in chronic kidney disease; N25.81 Secondary hyperparathyroidism of renal origin; E66.3 Overweight
CPT/HCPCS: 36415; 80048; 82043; 82570; 83036

== ENCOUNTER → 2024-09-02 07:51 | Outpatient (CLI) | payer MEDICARE, SELFPAY ==
[2023-11-30 00:51] VITALS: BMI 25.8
[2024-09-02 08:33] LABS: BUN Creatinine Ratio 22.3 (6-22); Blood Urea Nitrogen 39 mg/dL (9-20); Calcium 8.9 mg/dL (8.4-10.2); Carbon Dioxide 25 mmol/L (22-32); Chloride 105 mmol/L (98-107); Estimated Glomerular Filt Rate 39 mL/min (>60); Glucose 79 mg/dL (80-110); HEMOLYSIS < 15 (0-50); Potassium 4.5 mmol/L (3.4-5.1); Sodium 138 mmol/L (137-145)
[2024-09-02 08:36] LABS: Hemoglobin A1C% w Est Avg Glu 7.4 % (4.0-6.0)
== END ==
LOC: LAB 07:52
PROVIDERS: PCP Internal Medicine; Referring Provider Internal Medicine; Visit Provider Internal Medicine
DX: E11.22 Type 2 diabetes mellitus with diabetic chronic kidney disease (principal)
CPT/HCPCS: 36415; 80048; 83036

== ENCOUNTER → 2024-12-06 07:28 | Outpatient (CLI) | payer MEDICARE, SELFPAY ==
[2023-11-30 00:51] VITALS: BMI 25.8
[2024-12-06 08:22] LABS: Hemoglobin A1C% w Est Avg Glu 7.1 % (4.0-6.0)
[2024-12-06 08:33] LABS: BUN Creatinine Ratio 30.2 (6-22); Blood Urea Nitrogen 51 mg/dL (9-20); Carbon Dioxide 24 mmol/L (22-32); Chloride 104 mmol/L (98-107); Estimated Glomerular Filt Rate 41 mL/min (>60); Glucose 154 mg/dL (70-99); HEMOLYSIS < 15 (0-50); Potassium 4.4 mmol/L (3.4-5.1); Sodium 137 mmol/L (137-145)
== END ==
PROVIDERS: PCP Internal Medicine; Referring Provider Internal Medicine; Visit Provider Internal Medicine
DX: E11.22 Type 2 diabetes mellitus with diabetic chronic kidney disease (principal); N18.32 Chronic kidney disease, stage 3b
CPT/HCPCS: 36415; 80048; 83036

== ENCOUNTER → 2025-03-10 07:33 | Outpatient (CLI) | payer MEDICARE, SELFPAY ==
[2023-11-30 00:51] VITALS: BMI 25.8
[2025-03-10 08:18] LABS: Hematocrit 43.1 % (41-53); Hemoglobin 14.8 g/dL (13.5-17.5); Mean Corpuscular HGB Conc 34.4 % (30-36); Mean Corpuscular Hemoglobin 31.3 PG (26-34); Mean Corpuscular Volume 90.8 fL (80-100); Platelet Count 149 X10^3/uL (150-400)
[2025-03-10 08:30] LABS: Hemoglobin A1C% w Est Avg Glu 6.6 % (4.0-6.0)
[2025-03-10 08:45] LABS: Blood Urea Nitrogen 32 mg/dL (9-20); Calcium 9.3 mg/dL (8.4-10.2); Carbon Dioxide 25 mmol/L (22-32); Chloride 103 mmol/L (98-107); Cholesterol 133 mg/dL (140-199); Estimated Glomerular Filt Rate 46 mL/min (>60); Glucose 96 mg/dL (70-99); HDL Cholesterol 48 mg/dL (40-60); HEMOLYSIS < 15 (0-50); Potassium 4.5 mmol/L (3.4-5.1); Sodium 139 mmol/L (137-145); Triglycerides 109 mg/dL (35-150)
[2025-03-10 11:17] LABS: Microalbumi Creatinin Ratio Ur 1520.0 ug/mg CR (<30)
== END ==
PROVIDERS: PCP Internal Medicine; Referring Provider Internal Medicine; Visit Provider Internal Medicine
DX: E78.2 Mixed hyperlipidemia (principal); E11.22 Type 2 diabetes mellitus with diabetic chronic kidney disease; N18.32 Chronic kidney disease, stage 3b; D63.1 Anemia in chronic kidney disease; N18.9 Chronic kidney disease, unspecified
CPT/HCPCS: 36415; 80048; 80061; 82043; 82570; 83036; 84450; 85027

== ENCOUNTER → 2025-06-08 07:30 | Outpatient (CLI) | payer MEDICARE, SELFPAY ==
[2023-11-30 00:51] VITALS: BMI 25.8
[2025-06-08 08:13] LABS: Hemoglobin A1C% w Est Avg Glu 6.4 % (4.0-6.0)
[2025-06-08 08:27] LABS: Blood Urea Nitrogen 29 mg/dL (9-20); Calcium 8.8 mg/dL (8.4-10.2); Carbon Dioxide 24 mmol/L (22-32); Chloride 103 mmol/L (98-107); Estimated Glomerular Filt Rate 50 mL/min (>60); Glucose 92 mg/dL (70-99); HEMOLYSIS < 15 (0-50); Potassium 4.3 mmol/L (3.4-5.1); Sodium 136 mmol/L (137-145)
== END ==
PROVIDERS: PCP Internal Medicine; Referring Provider Internal Medicine; Visit Provider Internal Medicine
DX: E11.22 Type 2 diabetes mellitus with diabetic chronic kidney disease (principal); N18.32 Chronic kidney disease, stage 3b; Z79.4 Long term (current) use of insulin
CPT/HCPCS: 36415; 80048; 83036